=== PATIENT | female | born 1985 | race American Indian/Alaskan Native ===

== ENCOUNTER 2018-07-19 13:07 | Emergency (ER) | payer MEDICAID ==
[2018-07-19] MEDS ORDERED: CATAPRES PO ONE (13:22)
--- NOTE | 2018-07-19 13:22 | Emergency Department Report ---
Blank Doc - Documentation Documentation: This is a 33-year-old female that presents with intermittent acute on chronic headache. Denies any blurry vision or visual changes. Denies any head trauma. This initial assessment/diagnostic orders/clinical plan/treatment(s) is/are subject to change based on patient's health status, clinical progression and re- assessment by fellow clinical providers in the ED. Further treatment and workup at subsequent clinical providers discretion. Patient/guardians urged not to elope from the ED as their condition may be serious if not clinically assessed and managed. Initial orders include: 1- Patient sent to [facility] for further evaluation and treatment 2- Ct head 3- catapress 0.2 mg for high blood pressure in triage 4- RN to repeat vitals
[2018-07-19] MEDS ORDERED: CATAPRES ONE (13:23)
--- NOTE | 2018-07-19 14:27 | Cat Scan Report ---
CT HEAD WITHOUT CONTRAST: HISTORY: Headache. TECHNIQUE: Sequential 2.5mm CT images. COMPARISON: none. FINDINGS: Cerebral Parenchyma: Within normal limits. Cerebellum: Within normal limits. Brainstem: Within normal limits. Ventricles: Normal. Sella: Normal. Extra-axial spaces: Normal. Basal Cisterns: Normal. Intracranial Hemorrhage: None. Midline Shift: None. Calvarium: Normal. Sinuses: Moderate mucosal thickening is noted in both maxillary sinuses. Endoscopic sinus surgery changes are suspected. The remaining sinuses are clear. Mastoid Air Cells: Normal. Visualized Orbits: Normal. IMPRESSION: Cranial CT scan within normal limits. Bilateral maxillary sinus disease which is likely chronic.
[2018-07-19] MEDS ORDERED: TORADOL IV ONE (17:07)
--- NOTE | 2018-07-19 17:12 | Emergency Department Report ---
ED General Adult HPI - General Chief complaint: Headache Stated complaint: ABD PAIN/HEADACHE Time Seen by Provider: 07/19/18 13:19 Source: patient, RN notes reviewed Mode of arrival: Ambulatory Limitations: No Limitations - History of Present Illness Initial comments: Primary care DrRuss: [facility] [employer] Lube Technician: cannot remember This is a 33-year-old female, not known to this provider previously. The patient reports that she is not . The patient reports that she has not delivered a given within the past 6-8 weeks. Patient reports that she is only sexually active with female partners. The patient presents to the emergency room today with complaint of nontraumatic left-sided occipital and parietal headache. The headache started 3 days ago. It is throbbing and intermittent. It is not sudden or thunderclap in nature. It did not reach maximal intensity within an hour. It is not the most intense headache of her life. There is no loss of vision, no sore throat, no nausea, no vomiting, no diarrhea, no urinary symptoms, and no current abdominal pain at this time. On review of systems, the patient reports that she is on her cell phone and a tablet for many hours a day. She gets 6-7 hours of sleep each night, sometimes interrupted. She has not had her vision checked in quite some time. She is not sure if she needs glasses or contact lenses. Patient secondarily endorses that she has not had a menstruation in 5 months. She endorses a history of irregular menstruation. She does not have any abdominal pain at this time. She has no urinary symptoms at this time. -: Gradual, days(s) Location: head Radiation: non-radiation Severity scale (0 -10): 7 Quality: aching Consistency: intermittent Improves with: none Worsens with: none Associated Symptoms: denies other symptoms - Related Data Previous Rx's Medication Instructions Recorded Last Taken Type Acetaminophen [Non-Aspirin Extra 500 mg PO Q6HR PRN #30 tablet 07/19/18 Unknown Rx Strength] Ibuprofen [Motrin] 600 mg PO Q8H PRN #30 tablet 07/19/18 Unknown Rx Allergies Allergy/AdvReac Type Severity Reaction Status Date / Time No Known Allergies Allergy Unverified 07/19/18 13:09 ED Review of Systems ROS: Stated complaint: ABD PAIN/HEADACHE Other details as noted in HPI Constitutional: denies: fever, malaise Eyes: denies: eye discharge, vision change ENT: denies: epistaxis Respiratory: denies: cough, orthopnea, shortness of breath, SOB with exertion Cardiovascular: denies: chest pain Gastrointestinal: denies: abdominal pain Genitourinary: abnormal menses. denies: urgency, dysuria Musculoskeletal: denies: back pain Skin: denies: lesions Neurological: headache. denies: weakness Psychiatric: denies: anxiety ED Past Medical Hx - Past Medical History Previous Medical History?: Yes Hx Hypertension: Yes - Surgical History Past Surgical History?: Yes Additional Surgical History: sinus surgery - Social History Smoking Status: Never Smoker Substance Use Type: None - Medications Home Medications: Home Medications Medication Instructions Recorded Confirmed Last Taken Type Acetaminophen [Non-Aspirin Extra 500 mg PO Q6HR PRN #30 tablet 07/19/18 Unknown Rx Strength] Ibuprofen [Motrin] 600 mg PO Q8H PRN #30 tablet 07/19/18 Unknown Rx ED Physical Exam - General Limitations: No Limitations General appearance: alert, in no apparent distress - Head Head exam: Present: atraumatic, normocephalic - Eye Eye exam: Present: normal appearance, PERRL, EOMI, other (visual acuity intact to finger counting, color perception, reading at a close distance). Absent: nystagmus - ENT ENT exam: Present: normal exam, normal orophraynx, mucous membranes moist, TM's normal bilaterally, normal external ear exam, other (there is no mastoid tenderness. There is no sinus tenderness.) - Neck Neck exam: Present: normal inspection, full ROM. Absent: tenderness, meningismus - Respiratory Respiratory exam: Present: normal lung sounds bilaterally. Absent: respiratory distress, wheezes, rales, rhonchi, stridor, chest wall tenderness, accessory muscle use, decreased breath sounds, prolonged expiratory - Cardiovascular Cardiovascular Exam: Present: regular rate, normal rhythm, normal heart sounds. Absent: bradycardia, tachycardia, irregular rhythm, systolic murmur, diastolic murmur, rubs, gallop - GI/Abdominal GI/Abdominal exam: Present: soft. Absent: distended, tenderness, guarding, rebound, rigid, pulsatile mass - Extremities Exam Extremities exam: Present: normal inspection, full ROM, other (2+ pulses noted in the bilateral upper, lower extremities. Compartments soft. No long bony tenderness. The pelvis is stable.). Absent: pedal edema, joint swelling, calf tenderness - Back Exam Back exam: Present: normal inspection, full ROM. Absent: tenderness, CVA tenderness (R), CVA tenderness (L), paraspinal tenderness, vertebral tenderness - Neurological Exam Neurological exam: Present: alert, oriented X3, normal gait, other (Extraocular movements intact. Tongue midline. No facial droop. Facial sensation intact to light touch in the V1, V2, V3 distribution bilaterally. 5 and 5 strength in 4 extremities.. Sensation is intact to light touch in 4 extremities.) - Psychiatric Psychiatric exam: Present: normal affect, normal mood - Skin Skin exam: Present: warm, dry, intact, normal color. Absent: rash ED Course Vital Signs 07/19/18 07/19/18 07/19/18 13:19 15:51 16:48 Temperature 98.1 F Pulse Rate 107 H 95 H 85 Respiratory 16 18 17 Rate Blood Pressure 183/131 Blood Pressure 154/97 143/83 [Left] O2 Sat by Pulse 98 99 100 Oximetry ED Medical Decision Making - Lab Data Vital Signs 07/19/18 07/19/18 07/19/18 13:19 15:51 16:48 Temperature 98.1 F Pulse Rate 107 H 95 H 85 Respiratory 16 18 17 Rate Blood Pressure 183/131 Blood Pressure 154/97 143/83 [Left] O2 Sat by Pulse 98 99 100 Oximetry - Radiology Data Radiology results: report reviewed, image reviewed CT scan of the brain is negative for acute disease - Medical Decision Making Differential diagnosis, including not limited to: Migraine headache, tension headache, cluster headache, headache secondary to excessive cell phone use, headache secondary to inadequate lens correction, headache secondary to hair extensions, irregular menstruation, polycystic ovarian syndrome, thyroid disorder Assessment and plan: 33-year-old female with 2 complaints. Complaint #1, left-sided headache. The patient is afebrile with reassuring vital signs, with resolved hypertension. She was given clonidine prior to my evaluation. Patient is noted to be speaking and playing on her cellular phone, and in no acute distress. She also has hair extensions in place. She is getting them replaced next week. She appears to be quite comfortable. A noncontrast CT scan of the brain is negative for acute disease. The headache will be treated symptomatically. I have counseled the patient to limit cell phone and tablet utilization, and to have her vision checked as an outpatient, to assess need for corrective lenses. Complaint #2, no menstruation 5 months. Patient is not having any abdominal pain or tenderness. The patient indicates she is not sexually active with male partners. She has no abdominal tenderness at this time. I did offer the patient an initial workup, including laboratory studies, including thyroid panel. However, I did pre parole counseling aide the patient that she would need to follow-up with an outpatient acquisition analyst to further evaluate her irregular menstruation. Patient indicates she prefers to follow up as an outpatient. Through shared decision making, patient and I agreed to treat her headache pain, and she can follow up with an outpatient acquisition analyst for her complaint of irregular menstruation. Critical care attestation.: If time is entered above; I have spent that time in minutes in the direct care of this critically ill patient, excluding procedure time. ED Disposition Clinical Impression: Elevated blood pressure reading, Headache, Irregular menstruation Disposition: TO HOME OR SELFCARE Is pt being admited?: No Does the pt Need Aspirin: No Condition: Stable Additional Instructions: Continue outpatient medications. Please note that blood pressure was elevated. Long-term complications of hypertension and elevated blood pressure includes stroke, heart attack, disability, paralysis, loss of quality of life. Follow-up with your primary care doctor within the next 3-4 weeks for repeat evaluation of elevated blood pressure. Follow-up with a acquisition analyst within the next 4 weeks for complaint of irregular menstruation. Please make certain to follow-up with an outpatient communications tower climber, or county or city auditor to have visual acuity checked, and assess need for corrective lenses. Please make certain to limit cell phone utilization. Excessive use of saline phone, computers and tablets may contribute to headache. Technique a headache, pain medication as needed/directed, return to the emergency room right away with new, worsening or different symptoms, or symptoms not present on the initial ER evaluation. Referrals: KRISTEN CRUZ MD [Primary Care Provider] - 3-5 Days [facility] [Provider Group] - 3-5 Days [facility] [Provider Group] - 3-5 Days [facility] [Provider Group] - 3-5 Days
[2018-07-19 17:49] VITALS: BP 151/106
== END 2018-07-19 17:49 | disposition home or self-care (01) ==
LOC: ED 13:07
DX: R51 Headache (principal); N92.6 Irregular menstruation, unspecified; I10 Essential (primary) hypertension
CPT/HCPCS: 70450; 96374; 99284; J1885

== ENCOUNTER 2019-05-04 08:46 | Emergency (ER) | payer MEDICAID ==
[2019-05-04 08:54] VITALS: BP 193/128
--- NOTE | 2019-05-04 10:05 | Emergency Department Report ---
Chief Complaint: Upper Respiratory Infection Stated Complaint: COUGH/CHEST PAIN Time Seen by Provider: 05/04/19 09:10 - HPI History of Present Illness: 34-year-old -[place] female presents to the emergency room for claims a cough for 3 weeks. Patient admits to sneezing denies any fever chills no recent travels no chest pain no shortness of breath. Patient is taken nothing for her cough. It was noted the patient's blood pressure was elevated in triage. Pat vera reports that she has been off her her blood pressure medicine for 1 month. Patient reports that she has a appointment with her primary care provider on Tuesday for refills of her blood pressure medications. She denies any night sweats coughing up blood or unintentional weight loss. - Exam Vital Signs: Vital Signs 05/04/19 08:50 Temperature 97.8 F Pulse Rate 84 Respiratory 16 Rate Blood Pressure 193/128 [Left] O2 Sat by Pulse 94 Oximetry Physical Exam: Gen: alert oriented NAD Cardic: regular rate and rhythm no murmurs appreciated Resp: Clear to auscultation bilateral no wheezing no rales or rhonchi. Abdomen: Soft nontender nondistended normal bowel sounds. MSE screening note: Focused history and physical exam performed. Due to findings the following was ordered: 34-year-old -[place] female presents to the emergency room for claims a cough for 3 weeks. Patient admits to sneezing denies any fever chills no recent travels no chest pain no shortness of breath. Patient is taken nothing for her cough. It was noted the patient's blood pressure was elevated in triage. Patient reports that she has been off her her blood pressure medicine for 1 month. Patient reports that she has a appointment with her primary care provider on Tuesday for refills of her blood pressure medications. She denies any night sweats coughing up blood or unintentional weight loss. Recommend taking [id number] Claritin or Robitussin or Mucinex for cough. Follow-up with your primary care provider on Tuesday. ED Disposition for MSE Clinical Impression: Hypertension, Non-compliant patient, Cough Disposition: MED SCREENING EXAM-LEFT Is pt being admited?: No Does the pt Need Aspirin: No Condition: Stable Instructions: Hypertension (ED) Additional Instructions: Recommend taking [id number] Claritin or Robitussin or Mucinex for cough. Follow-up with your primary care provider on Tuesday.
== END 2019-05-04 10:17 | disposition left against medical advice (07) ==
LOC: ED 08:46
DX: I10 Essential (primary) hypertension (principal); R05 Cough
CPT/HCPCS: 99282

== ENCOUNTER 2019-06-10 06:49 | Emergency (ER) | payer MEDICAID ==
[2019-06-10] MEDS ORDERED: ACETAMINOPHEN 325 MG TAB ONE (07:12)
[2019-06-10] MEDS ORDERED: ONDANSETRON 4 MG ODT TAB PO ONE (07:13)
[2019-06-10] MEDS ORDERED: SODIUM CHLORIDE 0.9% 1000 ML 1,000 ML IV ONE ×2 (07:37→08:28)
--- NOTE | 2019-06-10 07:37 | Emergency Department Report ---
ED Fever HPI - General Chief Complaint: Upper Respiratory Infection Stated Complaint: VOMITING/FEVER/COUGH/BODYACHE/CP Time Seen by Provider: 06/10/19 07:31 Source: patient Exam Limitations: no limitations - History of Present Illness Initial Comments: Mrs. Henson is a 34-year-old female with history of hypertension who presents with 2 days of fever cough vomiting blood left earache. She also has body aches. No sick contacts. She does not work. She lives with her mother and 3 children. She has been in public spaces. Cough is productive. She has chest discomfort with cough. Nurse witnessed bloody emesis in triage. She also explains that her stomach feels "upset". Timing/Duration: other (2 days) Fever Severity/Quality: greater than 102 F Associated Symptoms: cough, muscle aches, other (Hematemesis left earache) ED Review of Systems ROS: Stated complaint: VOMITING/FEVER/COUGH/BODYACHE/CP Other details as noted in HPI Comment: All other systems reviewed and negative Constitutional: fever, malaise ENT: ear pain Respiratory: cough. denies: shortness of breath Cardiovascular: chest pain Gastrointestinal: abdominal pain ("Stomach upset"), nausea, hematemesis ED Past Medical Hx - Past Medical History Previous Medical History?: Yes Hx Hypertension: Yes - Surgical History Additional Surgical History: sinus surgery - Social History Smoking Status: Never Smoker Substance Use Type: None - Medications Home Medications: Home Medications Medication Instructions Recorded Confirmed Last Taken Type Acetaminophen [Non-Aspirin Extra 500 mg PO Q6HR PRN #30 tablet 07/19/18 Unknown Rx Strength] Doxycycline Hyclate [Doxycycline 100 mg PO Q12HR 7 Days #14 tab 06/10/19 Unknown Rx Hyclate TAB] ED Physical Exam - General Limitations: No Limitations General appearance: alert, in no apparent distress - Head Head exam: Present: atraumatic, normocephalic - Eye Eye exam: Present: normal appearance - ENT ENT exam: Present: mucous membranes moist, other (Left tympanic membrane: There is opaque effusion purulent posterior to a bulging erythematous TM) - Neck Neck exam: Present: normal inspection, full ROM - Respiratory Respiratory exam: Present: normal lung sounds bilaterally. Absent: respiratory distress, wheezes, rales, rhonchi - Cardiovascular Cardiovascular Exam: Present: normal rhythm, tachycardia, normal heart sounds. Absent: systolic murmur, diastolic murmur, rubs, gallop - GI/Abdominal GI/Abdominal exam: Present: soft, normal bowel sounds. Absent: distended, t enderness, guarding, rebound - Extremities Exam Extremities exam: Present: normal inspection - Neurological Exam Neurological exam: Present: alert, oriented X3 - Psychiatric Psychiatric exam: Present: normal affect, normal mood - Skin Skin exam: Present: warm, dry, intact, normal color. Absent: rash ED Course Vital Signs 06/10/19 06/10/19 06/10/19 06:54 07:02 07:52 Temperature 102.8 F H Pulse Rate 128 H 127 H Respiratory 20 20 24 Rate Blood Pressure 143/106 130/93 [Left] O2 Sat by Pulse 98 99 Oximetry 06/10/19 08:05 Temperature Pulse Rate Respiratory 18 Rate Blood Pressure [Left] O2 Sat by Pulse Oximetry ED Medical Decision Making - Lab Data Result diagrams: 06/10/19 07:31 06/10/19 07:31 - EKG Data EKG shows normal: sinus rhythm, intervals, QRS complexes, ST-T waves Rate: normal, tachycardia - EKG Data Interpretation: normal EKG (With exception of sinus tachycardia rate 130 bpm) - Radiology Data Radiology results: report reviewed Bibasilar airspace opacities concerning for pneumonia chest radiograph 2 view according to radiology impression - Medical Decision Making bibasilar pneumonia with otitis media prescribed doxycycline consider alcohol or pandemic I strongly suspect COVID 19 infection. Patient provided education. She is advised to self quarantine and self isolate for the next 14 days. Critical care attestation.: If time is entered above; I have spent that time in minutes in the direct care of this critically ill patient, excluding procedure time. ED Disposition Clinical Impression: Coronavirus infection, Otitis media, left Disposition: DC-01 TO HOME OR SELFCARE Is pt being admited?: No Does the pt Need Aspirin: No Condition: Stable Instructions: COVID-19 Prescriptions: Doxycycline Hyclate [Doxycycline Hyclate TAB] 100 mg PO Q12HR 7 Days #14 tab Referrals: JELLY BARFIELD MD [Primary Care Provider] - 3-5 Days
[2019-06-10] MEDS ORDERED: ONDANSETRON 4 MG/2 ML INJ IV ONE (07:58)
[2019-06-10 08:10] LABS: Basophils # (Auto) 0.2 K/mm3 (0.0-0.1); Basophils % (Auto) 2.6 % (0.0-1.8); Hematocrit 47.6 % (30.3-42.9); Hemoglobin 16.5 gm/dl (10.1-14.3); Lymphocytes # (Auto) 2.2 K/mm3 (1.2-5.4); Lymphocytes % (Auto) 25.3 % (13.4-35.0); Mean Corpuscular HGB Conc 35 % (30-34); Mean Corpuscular Volume 81 fl (79-97); Monocytes # (Auto) 0.8 K/mm3 (0.0-0.8); Monocytes % (Auto) 8.8 % (0.0-7.3); Platelet Count 198 K/mm3 (140-440); Red Blood Count 5.89 M/mm3 (3.65-5.03)
[2019-06-10 08:23] LABS: Alanine Aminotransferase 19 units/L (7-56); Albumin 3.8 g/dL (3.9-5); BUN/Creatinine Ratio 12; Blood Urea Nitrogen 12 mg/dL (7-17); Calcium 8.8 mg/dL (8.4-10.2); Hemolysis Index 21
[2019-06-10] MEDS ORDERED: IBUPROFEN 800 MG TAB PO ONE (08:28)
[2019-06-10] MEDS: ACETAMINOPHEN 325 MG TAB PO ONE ×3 (08:34→09:20)
--- NOTE | 2019-06-10 08:59 | XRay Report ---
CHEST 2 VIEWS INDICATION / CLINICAL INFORMATION: Fever, cough. COMPARISON: None available. FINDINGS: SUPPORT DEVICES: None. HEART / MEDIASTINUM: No significant abnormality. LUNGS / PLEURA: Bibasilar airspace opacities are noted. The upper lungs are clear. No significant ple ural effusion. No pneumothorax. ADDITIONAL FINDINGS: No significant additional findings. IMPRESSION: Bibasilar airspace opacities are concerning for pneumonia given the provided history. Follow-up PA an d lateral chest radiograph in 2-3 weeks are recommended to document clearing. Signer Name: Gaudencio Soto MD Signed: 06/10/2019 8:55 AM Workstation Name: [id number]
[2019-06-10 11:32] VITALS: BP 141/90
== END 2019-06-10 11:41 | disposition home or self-care (01) ==
LOC: ED 06:49
DX: H66.92 Otitis media, unspecified, left ear (principal); U07.1 COVID-19; I10 Essential (primary) hypertension; Z98.890 Other specified postprocedural states
CPT/HCPCS: 36415; 71046; 80053; 84703; 85025; 87040; 93005; 93010; 96361; 96374; 99284; J2405; J7030; Q0162

== ENCOUNTER 2019-06-12 19:34 | Emergency (ER) | payer MEDICAID ==
[2019-06-12] MEDS ORDERED: SODIUM CHLORIDE 0.9% 1000 ML IV SOLN IV ONE (20:09)
[2019-06-12 20:11] LABS: Basophils % (Auto) 0.3 % (0.0-1.8); Hematocrit 45.7 % (30.3-42.9); Hemoglobin 15.3 gm/dl (10.1-14.3); Lymphocytes # (Auto) 1.2 K/mm3 (1.2-5.4); Lymphocytes % (Auto) 15.7 % (13.4-35.0); Mean Corpuscular HGB Conc 34 % (30-34); Mean Corpuscular Volume 81 fl (79-97); Monocytes # (Auto) 0.6 K/mm3 (0.0-0.8); Monocytes % (Auto) 7.8 % (0.0-7.3); Platelet Count 165 K/mm3 (140-440); Red Blood Count 5.63 M/mm3 (3.65-5.03); Red Cell Distribution Width 14.4 % (13.2-15.2)
[2019-06-12] MEDS ORDERED: BENZONATATE 100 MG CAP PO ONE (20:11)
[2019-06-12] MEDS ORDERED: HYDROcodone/APAP 7.5-325MG-15ML ORAL LIQD PO ONE (20:11)
[2019-06-12] MEDS ORDERED: cefTRIAXone/NS 2 GM/100 ML 2 GM/100 ML BAG IV SCH (20:30)
[2019-06-12 20:35] LABS: C-Reactive Protein 5.3 mg/dL (0.00-1.30)
--- NOTE | 2019-06-12 20:53 | XRay Report ---
CHEST 1 VIEW INDICATION / CLINICAL INFORMATION: cough sob. COMPARISON: None available. FINDINGS: SUPPORT DEVICES: None. HEART / MEDIASTINUM: No significant abnormality. LUNGS / PLEURA: No significant pulmonary or pleural abnormality. No pneumothorax. ADDITIONAL FINDINGS: No significant additional findings. IMPRESSION: 1. No acute findings. Signer Name: Live Salazar MD Signed: 06/12/2019 8:49 PM Workstation Name: [id number]
[2019-06-12] MEDS ORDERED: KETOROLAC 30 MG/1 ML INJ IV ONE (20:56)
[2019-06-12] MEDS ORDERED: ONDANSETRON 4 MG/2 ML INJ IV ONE (20:56)
[2019-06-12] MEDS ORDERED: AZITHROMYCIN 500 MG in SODIUM CHLORIDE 0.9% 250ML 250 ML IV SCH (21:30)
[2019-06-12 21:40] LABS: Albumin 3.8 g/dL (3.9-5); Calcium 9.1 mg/dL (8.4-10.2)
[2019-06-12 22:14] LABS: Bacteria,Urine 1+ /HPF (Negative); Bilirubin,Urine NEG (Negative); Blood,Urine MOD (Negative); Color,Urine Yellow (Yellow); Mucus,Urine 2+ /HPF; Urobilinogen,Urine < 2.0 mg/dL (<2.0)
[2019-06-12] MEDS ORDERED: FAMOTIDINE 20 MG/2 ML INJ IV ONE ×2 (22:42→22:44)
[2019-06-12] MEDS ORDERED: DICYCLOMINE 20 MG/2 ML INJ IM ONE ×2 (22:42→22:44)
--- NOTE | 2019-06-12 23:45 | Emergency Department Report ---
ED General Adult HPI - General Chief complaint: Abdominal Pain Stated complaint: COUGH/ABD PAIN/EMESIS Time Seen by Provider: 06/12/19 19:59 Source: patient Mode of arrival: Wheelchair Limitations: No Limitations - History of Present Illness Initial comments: Patient is a 34-year-old F [place] female who is had cough shortness of breath for approximately a week. Patient was here 2 days ago and diagnosed with bilateral pneumonia and possible coronavirus. Patient states she is now vomiting having some upper abdominal discomfort. Patient states cough is nonproductive. Patient states she has not eaten in approximately 3 days secondary to the cough and decreased appetite. She denies lightheadedness diarrhea sore throat or neck stiffness. Patient has had fevers and chills. Severity scale (0 -10): 10 - Related Data Previous Rx's Medication Instructions Recorded Last Taken Type Acetaminophen [Non-Aspirin Extra 500 mg PO Q6HR PRN #30 tablet 07/19/18 Unknown Rx Strength] Doxycycline Hyclate [Doxycycline 100 mg PO Q12HR 7 Days #14 tab 06/10/19 Unknown Rx Hyclate TAB] Albuterol INH(or & Nicu Only) 2 puff IH QID PRN #1 inhalation 06/12/19 Unknown Rx [ProAir HFA Inhaler] Benzonatate [Tessalon Perles] 100 mg PO Q8HR #10 capsule 06/12/19 Unknown Rx Dicyclomine [Bentyl] 20 mg PO QID #10 tablet 06/12/19 Unknown Rx HYDROcodone/ACETAMINOPHEN 15 ml PO Q6H PRN #150 solution 06/12/19 Unknown Rx [Hydrocodon-Acetamin 7.5-325/15] Ondansetron [Zofran Odt] 4 mg PO Q8HR #10 tab.rapdis 06/12/19 Unknown Rx Allergies Allergy/AdvReac Type Severity Reaction Status Date / Time No Known Allergies Allergy Unverified 07/19/18 13:09 ED Review of Systems ROS: Stated complaint: COUGH/ABD PAIN/EMESIS Other details as noted in HPI Comment: All other systems reviewed and negative ED Past Medical Hx - Past Medical History Previous Medical History?: Yes Hx Hypertension: Yes - Surgical History Past Surgical History?: Yes Additional Surgical History: sinus surgery - Social History Smoking Status: Never Smoker Substance Use Type: None - Medications Home Medications: Home Medications Medication Instructions Recorded Confirmed Last Taken Type Acetaminophen [Non-Aspirin Extra 500 mg PO Q6HR PRN #30 tablet 07/19/18 Unknown Rx Strength] Doxycycline Hyclate [Doxycycline 100 mg PO Q12HR 7 Days #14 tab 06/10/19 Unknown Rx Hyclate TAB] Albuterol INH(or & Nicu Only) 2 puff IH QID PRN #1 inhalation 06/12/19 Unknown Rx [ProAir HFA Inhaler] Benzonatate [Tessalon Perles] 100 mg PO Q8HR #10 capsule 06/12/19 Unknown Rx Dicyclomine [Bentyl] 20 mg PO QID #10 tablet 06/12/19 Unknown Rx HYDROcodone/ACETAMINOPHEN 15 ml PO Q6H PRN #150 solution 06/12/19 Unknown Rx [Hydrocodon-Acetamin 7.5-325/15] Ondansetron [Zofran Odt] 4 mg PO Q8HR #10 tab.rapdis 06/12/19 Unknown Rx ED Physical Exam - General Limitations: No Limitations General appearance: alert, in no apparent distress - Head Head exam: Present: atraumatic, normocephalic - Eye Eye exam: Present: normal appearance, PERRL, EOMI - ENT ENT exam: Present: mucous membranes moist - Neck Neck exam: Present: normal inspection - Respiratory Respiratory exam: Present: normal lung sounds bilaterally. Absent: respiratory distress, wheezes, rales, rhonchi - Cardiovascular Cardiovascular Exam: Present: normal rhythm, tachycardia, normal heart sounds. Absent: systolic murmur, diastolic murmur, rubs, gallop - GI/Abdominal GI/Abdominal exam: Present: soft, normal bowel sounds. Absent: distended, tenderness, guarding, rebound - Extremities Exam Extremities exam: Present: normal inspection - Back Exam Back exam: Present: normal inspection - Neurological Exam Neurological exam: Present: alert, oriented X3 - Psychiatric Psychiatric exam: Present: normal affect, normal mood - Skin Skin exam: Present: warm, dry, intact, normal color. Absent: rash ED Course Vital Signs 06/12/19 06/12/19 06/12/19 19:52 20:40 20:45 Temperature 103.1 F H Pulse Rate 134 H 132 H Respiratory 22 18 21 Rate Blood Pressure 150/103 Blood Pressure 123/87 [Left] O2 Sat by Pulse 95 99 Oximetry 06/12/19 06/12/1906/11/20 21:00 22:00 22:30 Temperature Pulse Rate 123 H 120 H 119 H Respiratory 26 H 23 24 Rate Blood Pressure 134/92 135/84 122/75 Blood Pressure [Left] O2 Sat by Pulse 97 95 96 Oximetry ED Medical Decision Making - Lab Data Result diagrams: 06/12/19 19:56 06/12/19 19:56 Lab Results 06/12/19 06/12/19 06/12/19 Range/Units 19:56 19:56 19:56 WBC 7.9 (4.5-11.0) K/mm3 RBC 5.63 H (3.65-5.03) M/mm3 Hgb 15.3 H (10.1-14.3) gm/dl Hct 45.7 H (30.3-42.9) % MCV 81 (79-97) fl MCH 27 L (28-32) pg MCHC 34 (30-34) % RDW 14.4 (13.2-15.2) % Plt Count 165 (140-440) K/mm3 Lymph % (Auto) 15.7 (13.4-35.0) % [place] % (Auto) 7.8 H (0.0-7.3) % Eos % (Auto) 0.0 (0.0-4.3) % Baso % (Auto) 0.3 (0.0-1.8) % Lymph # 1.2 (1.2-5.4) K/mm3 [place] # 0.6 (0.0-0.8) K/mm3 Eos # 0.0 (0.0-0.4) K/mm3 Baso # 0.0 (0.0-0.1) K/mm3 Seg Neutrophils % 76.2 H (40.0-70.0) % Seg Neutrophils # 6.0 (1.8-7.7) K/mm3 D-Dimer 551.55 H (0-234) ng/mlDDU Sodium 135 L (137-145) mmol/L Potassium 3.8 (3.6-5.0) mmol/L Chloride 96.2 L (98-107) mmol/L Carbon Dioxide 20 L (22-30) mmol/L Anion Gap 23 mmol/L BUN 15 (7-17) mg/dL Creatinine 1.3 H (0.7-1.2) mg/dL Estimated GFR 57 ml/min BUN/Creatinine Ratio 12 % Glucose 129 H (65-100) mg/dL Lactic Acid (0.7-2.0) mmol/L Calcium 9.1 (8.4-10.2) mg/dL Ferritin (13.0-400.0) ng/mL Total Bilirubin 0.50 (0.1-1.2) mg/dL AST 52 H (5-40) units/L ALT 31 (7-56) units/L Alkaline Phosphatase 58 (35-129) units/L Lactate Dehydrogenase (91-180) units/L C-Reactive Protein (0.00-1.30) mg/dL Total Protein 8.4 H (6.3-8.2) g/dL Albumin 3.8 L (3.9-5) g/dL Albumin/Globulin Ratio 0.8 % Urine Color (Yellow) Urine Turbidity (Clear) Urine pH (5.0-7.0) Ur Specific [place] (1.003-1.030) Urine Protein (Negative) mg/dL Urine Glucose (UA) (Negative) mg/dL Urine Ketones (Negative) mg/dL Urine Blood (Negative) Urine Nitrite (Negative) Urine Bilirubin (Negative) Urine Urobilinogen (<2.0) mg/dL Ur Leukocyte Esterase (Negative) Urine WBC (Auto) (0.0-6.0) /HPF Urine RBC (Auto) (0.0-6.0) /HPF U Epithel Cells (Auto) (0-13.0) /HPF Urine Bacteria (Auto) (Negative) /HPF Urine Mucus /HPF 06/12/19 06/12/19 06/12/19 Range/Units 19:56 19:56 20:16 WBC (4.5-11.0) K/mm3 RBC (3.65-5.03) M/mm3 Hgb (10.1-14.3) gm/dl Hct (30.3-42.9) % MCV (79-97) fl MCH (28-32) pg MCHC (30-34) % RDW (13.2-15.2) % Plt Count (140-440) K/mm3 Lymph % (Auto) (13.4-35.0) % [place] % (Auto) (0.0-7.3) % Eos % (Auto) (0.0-4.3) % Baso % (Auto) (0.0-1.8) % Lymph # (1.2-5.4) K/mm3 [place] # (0.0-0.8) K/mm3 Eos # (0.0-0.4) K/mm3 Baso # (0.0-0.1) K/mm3 Seg Neutrophils % (40.0-70.0) % Seg Neutrophils # (1.8-7.7) K/mm3 D-Dimer (0-234) ng/mlDDU Sodium (137-145) mmol/L Potassium (3.6-5.0) mmol/L Chloride (98-107) mmol/L Carbon Dioxide (22-30) mmol/L Anion Gap mmol/L BUN (7-17) mg/dL Creatinine (0.7-1.2) mg/dL Estimated GFR ml/min BUN/Creatinine Ratio % Glucose 131 H (65-100) mg/dL Lactic Acid 1.20 (0.7-2.0) mmol/L Calcium (8.4-10.2) mg/dL Ferritin 355.8 (13.0-400.0) ng/mL Total Bilirubin (0.1-1.2) mg/dL AST (5-40) units/L ALT (7-56) units/L Alkaline Phosphatase (35-129) units/L Lactate Dehydrogenase 313 H (91-180) units/L C-Reactive Protein 5.30 H (0.00-1.30) mg/dL Total Protein (6.3-8.2) g/dL Albumin (3.9-5) g/dL Albumin/Globulin Ratio % Urine Color (Yellow) Urine Turbidity (Clear) Urine pH (5.0-7.0) Ur Specific [place] (1.003-1.030) Urine Protein (Negative) mg/dL Urine Glucose (UA) (Negative) mg/dL Urine Ketones (Negative) mg/dL Urine Blood (Negative) Urine Nitrite (Negative) Urine Bilirubin (Negative) Urine Urobilinogen (<2.0) mg/dL Ur Leukocyte Esterase (Negative) Urine WBC (Auto) (0.0-6.0) /HPF Urine RBC (Auto) (0.0-6.0) /HPF U Epithel Cells (Auto) (0-13.0) /HPF Urine Bacteria (Auto) (Negative) /HPF Urine Mucus /HPF 06/12/19 Range/Units 22:07 WBC (4.5-11.0) K/mm3 RBC (3.65-5.03) M/mm3 Hgb (10.1-14.3) gm/dl Hct (30.3-42.9) % MCV (79-97) fl MCH (28-32) pg MCHC (30-34) % RDW (13.2-15.2) % Plt Count (140-440) K/mm3 Lymph % (Auto) (13.4-35.0) % [place] % (Auto) (0.0-7.3) % Eos % (Auto) (0.0-4.3) % Baso % (Auto) (0.0-1.8) % Lymph # (1.2-5.4) K/mm3 [place] # (0.0-0.8) K/mm3 Eos # (0.0-0.4) K/mm3 Baso # (0.0-0.1) K/mm3 Seg Neutrophils % (40.0-70.0) % Seg Neutrophils # (1.8-7.7) K/mm3 D-Dimer (0-234) ng/mlDDU Sodium (137-145) mmol/L Potassium (3.6-5.0) mmol/L Chloride (98-107) mmol/L Carbon Dioxide (22-30) mmol/L Anion Gap mmol/L BUN (7-17) mg/dL Creatinine (0.7-1.2) mg/dL Estimated GFR ml/min BUN/Creatinine Ratio % Glucose (65-100) mg/dL Lactic Acid (0.7-2.0) mmol/L Calcium (8.4-10.2) mg/dL Ferritin (13.0-400.0) ng/mL Total Bilirubin (0.1-1.2) mg/dL AST (5-40) units/L ALT (7-56) units/L Alkaline Phosphatase (35-129) units/L Lactate Dehydrogenase (91-180) units/L C-Reactive Protein (0.00-1.30) mg/dL Total Protein (6.3-8.2) g/dL Albumin (3.9-5) g/dL Albumin/Globulin Ratio % Urine Color Yellow (Yellow) Urine Turbidity Clear (Clear) Urine pH 5.0 (5.0-7.0) Ur Specific [place] 1.026 (1.003-1.030) Urine Protein 100 mg/dl (Negative) mg/dL Urine Glucose (UA) Neg (Negative) mg/dL Urine Ketones Tr (Negative) mg/dL Urine Blood Mod (Negative) Urine Nitrite Neg (Negative) Urine Bilirubin Neg (Negative) Urine Urobilinogen < 2.0 (<2.0) mg/dL Ur Leukocyte Esterase Neg (Negative) Urine WBC (Auto) 6.0 (0.0-6.0) /HPF Urine RBC (Auto) 3.0 (0.0-6.0) /HPF U Epithel Cells (Auto) 2.0 (0-13.0) /HPF Urine Bacteria (Auto) 1+ (Negative) /HPF Urine Mucus 2+ /HPF - Radiology Data [facility] [address] [place] [address] XRay Report Signed Patient: OMER ESCALANTE MR#: [id number] : 1985 Acct:[id number] Age/Sex: 34 / F ADM Date: 06/12/19 Loc: ED Attending Dr: Ordering Physician: NAZIA SIMON MD Date of Service: 06/12/19 Procedure(s): XR chest 1V ap Accession Number(s): [id number] cc: NAZIA SIMON MD Fluoro Time In Minutes: CHEST 1 VIEW INDICATION / CLINICAL INFORMATION: cough sob. COMPARISON: None available. FINDINGS: SUPPORT DEVICES: None. HEART / MEDIASTINUM: No significant abnormality. LUNGS / PLEURA: No significant pulmonary or pleural abnormality. No p neumothorax. ADDITIONAL FINDINGS: No significant additional findings. IMPRESSION: 1. No acute findings. Signer Name: Live Salazar MD Signed: 06/12/2019 8:49 PM Workstation Name: [email or web address] - Medical Decision Making Patient was started on IV fluids when laboratory studies were drawn. Chest x- ray 2 days ago showed possible bilateral lower lobe infiltrates which were not seen at this time. Patient is white count is within normal limits. Even after ambulating greater than 2 minutes patient's O2 sat was within normal limits and patient was not hypoxic. After IV fluids patient's heart rate did improve. Patient's nausea is improved as well as she was able to tolerate juice and snack here in the emergency department and states her abdominal discomfort is better. Patient likely does have coronavirus infection and is been asked to return if her shortness of breath worsens at this time patient does not meet inpatient criteria will be discharged home. Critical care attestation.: If time is entered above; I have spent that time in minutes in the direct care of this critically ill patient, excluding procedure time. ED Disposition Clinical Impression: Upper respiratory infection, Gastritis, Suspected COVID-19 virus infection Disposition: DC-01 TO HOME OR SELFCARE Is pt being admited?: No Does the pt Need Aspirin: No Condition: Stable Instructions: COVID-19, Acute Nausea and Vomiting (ED) Referrals: PRIMARY CARE, [Primary Care Provider] - 7-10 days Time of Disposition: 23:47
[2019-06-13 00:30] VITALS: BP 117/79
== END 2019-06-13 00:15 | disposition home or self-care (01) ==
LOC: ED 19:34
DX: J06.9 Acute upper respiratory infection, unspecified (principal); K29.60 Other gastritis without bleeding; I10 Essential (primary) hypertension; Z79.899 Other long term (current) drug therapy; Z98.890 Other specified postprocedural states; Z20.828 Contact with and (suspected) exposure to other viral communicable diseases
CPT/HCPCS: 36415; 71045; 80053; 81001; 82140; 82728; 82947; 83615; 84145; 85025; 85379; 86140; 87040; 96365; 96367; 96372; 96375; 99284; J0456; J0500; J0696; J1885; J2405; J7030; J7050

== ENCOUNTER 2019-07-02 11:09 | Emergency (ER) | payer MEDICAID ==
[2019-07-02 11:42] LABS: Basophils # (Auto) 0.1 K/mm3 (0.0-0.1); Basophils % (Auto) 1.2 % (0.0-1.8); Eosinophils # (Auto) 0.1 K/mm3 (0.0-0.4); Eosinophils % (Auto) 0.9 % (0.0-4.3); Hematocrit 38.6 % (30.3-42.9); Hemoglobin 12.9 gm/dl (10.1-14.3); Lymphocytes # (Auto) 2.5 K/mm3 (1.2-5.4); Lymphocytes % (Auto) 28.7 % (13.4-35.0); Mean Corpuscular HGB Conc 33 % (30-34); Mean Corpuscular Volume 81 fl (79-97); Monocytes # (Auto) 0.5 K/mm3 (0.0-0.8); Monocytes % (Auto) 6.2 % (0.0-7.3); Platelet Count 301 K/mm3 (140-440); Red Blood Count 4.77 M/mm3 (3.65-5.03); Red Cell Distribution Width 13.9 % (13.2-15.2)
[2019-07-02] MEDS ORDERED: KETOROLAC 60 MG/2 ML INJ IM ONE (11:56)
[2019-07-02 12:07] LABS: Alanine Aminotransferase 36 units/L (7-56); Albumin 3.6 g/dL (3.9-5); BUN/Creatinine Ratio 12; Blood Urea Nitrogen 11 mg/dL (7-17); Calcium 9.2 mg/dL (8.4-10.2); Hemolysis Index 30
[2019-07-02 12:16] LABS: Bilirubin,Urine NEG (Negative); Blood,Urine MOD (Negative); Color,Urine Yellow (Yellow); Mucus,Urine FEW /HPF; Protein,Urine <15 mg/dL mg/dL (Negative); Urobilinogen,Urine < 2.0 mg/dL (<2.0)
--- NOTE | 2019-07-02 12:30 | Emergency Department Report ---
ED Abdominal Pain HPI - General Chief Complaint: Abdominal Pain Stated Complaint: BACK PAIN, CANT USE BATHROOM Time Seen by Provider: 07/02/19 11:40 Source: patient Mode of arrival: Wheelchair Limitations: No Limitations - History of Present Illness Initial Comments: 34-year-old female with of PUD presents to the ER today complaining of right upper quadrant/right flank pain. Patient states that her pain started last night while she was laying down. She states that it has been a constant pain and has gotten worse today. She states that is nonradiating. Patient states that she has been having a sensation that she has to have a bowel movement, ea rlier today when she went she only had small amount of stool, like a pebble and was hard but later on she had another bowel movement and it was "soupy" consistency. She states that she had not taken anything [id number] for the pain nor for constipation. Patient also reports a pressure sensation down her vaginal area as well as her rectum. She states that this pressure sensation is intermittent. She denies any bloody stools or mucus in her stools. She denies any UTI symptoms or vaginal symptoms. She states that she stopped depo last year and she has not had a menstrual cycle since. She states she is not concerned for as she is homosexual. She denies similar pain in past. She denies nausea, vomiting, fever. She denies history of abdominal surgeries. MD Complaint: abdominal pain, flank pain -: Sudden (last night) Severity scale (0 -10): 5 - Related Data Previous Rx's Medication Instructions Recorded Last Taken Type Azithromycin [Zithromax Z-KEN] 0 mg PO DAILY #1 pack 07/02/19 Unknown Rx Ketorolac [Toradol] 10 mg PO Q6H PRN #20 tablet 07/02/19 Unknown Rx Tamsulosin [Flomax] 0.4 mg PO QDAY #5 cap 07/02/19 Unknown Rx Allergies Allergy/AdvReac Type Severity Reaction Status Date / Time No Known Allergies Allergy Unverified 07/19/18 13:09 ED Review of Systems ROS: Stated complaint: BACK PAIN, CANT USE BATHROOM Other details as noted in HPI Constitutional: denies: chills, fever ENT: denies: ear pain, throat pain Respiratory: denies: cough, shortness of breath, wheezing Cardiovascular: denies: chest pain, palpitations Gastrointestinal: abdominal pain, constipation. denies: nausea, vomiting, diarrhea, hematemesis, melena, hematochezia Genitourinary: denies: urgency, dysuria, discharge Neurological: denies: headache, weakness, paresthesias Psychiatric: denies: anxiety, depression ED Past Medical Hx - Past Medical History Previous Medical History?: Yes Hx Hypertension: Yes Additional medical history: Dx with COVID 19 a couple weeks ago - Recovered - Surgical History Past Surgical History?: Yes Additional Surgical History: sinus surgery - Social History Smoking Status: Never Smoker Substance Use Type: None - Medications Home Medications: Home Medications Medication Instructions Recorded Confirmed Last Taken Type Azithromycin [Zithromax Z-KEN] 0 mg PO DAILY #1 pack 07/02/19 Unknown Rx Ketorolac [Toradol] 10 mg PO Q6H PRN #20 tablet 07/02/19 Unknown Rx Tamsulosin [Flomax] 0.4 mg PO QDAY #5 cap 07/02/19 Unknown Rx ED Physical Exam - General Limitations: No Limitations General appearance: alert, anxious (mild), in distress (Mild pain) - Head Head exam: Present: atraumatic, normocephalic - Eye Eye exam: Present: normal appearance - ENT ENT exam: Present: mucous membranes moist - Respiratory Respiratory exam: Present: normal lung sounds bilaterally. Absent: respiratory distress - Cardiovascular Cardiovascular Exam: Present: regular rate, normal rhythm. Absent: systolic murmur, diastolic murmur, rubs, gallop - GI/Abdominal GI/Abdominal exam: Present: soft, tenderness (Mild right upper quadrant and right lower quadrant abdominal tenderness without any guarding or rebound. Negative McBurney's point tenderness and negative Quintanilla sign), other (Mild right CVA tenderness) - Rectal Rectal exam: Present: normal inspection, normal rectal tone. Absent: fecal im paction, hemorrhoids - Neurological Exam Neurological exam: Present: alert, oriented X3, CN II-XII intact - Skin Skin exam: Present: intact ED Course Vital Signs 07/02/19 11:23 Temperature 98.1 F Pulse Rate 84 Respiratory 20 Rate Blood Pressure 180/120 [Right] O2 Sat by Pulse 98 Oximetry ED Medical Decision Making - Lab Data Result diagrams: 07/02/19 11:25 07/02/19 11:25 - Radiology Data Radiology results: report reviewed Findings [address] [address] Cat Scan Report Signed Patient: OMER ESCALANTE MR#: [id number] : 1985 Acct:[id number] Age/Sex: 34 / F ADM Date: 07/02/19 Loc: ED Attending Dr: Ordering Physician: PARAMJIT TEIXEIRA Date of Service: 07/02/19 Procedure(s): CT abdomen pelvis wo con Accession Number(s): [id number] cc: PARAMJIT TEIXEIRA CT ABDOMEN AND PELVIS WITHOUT CONTRAST HISTORY: Right flank pain. COMPARISON: None TECHNIQUE: Routine abdominal and pelvic CT exam performed without contrast. Lack of intravenous contrast limits evaluation of the vascular and solid organs.. All CT scans at this location are performed using CT dose reduction for ALARA by means of automated exposure control. FINDINGS: CT AB DOMEN: Lung Bases: There is airspace consolidation in the posterior basilar right lower lobe. Liver: Decreased attenuation consistent with hepatic steatosis. Biliary: No significant abnormality. Spleen: No significant abnormality. Unenlarged. Pancreas: No significant abnormality. Adrenals: No significant abnormality. Kidneys: There is mild right hydronephrosis due to a 1 mm stone in the right UVJ. There is also a 2 mm right intrarenal stone. There is a 1 mm left intrarenal stone. Lymphatics: No lymphadenopathy. Vasculature: No significant abnormality. Bowel/Peritoneum: No significant abnormality. No free air. No free fluid. CT PELVIC: : No significant abnormality. Lymphatics: No lymphadenopathy. Osseous Structures: No aggressive appearing osseous lesions. Additional Findings: None IMPRESSION: 1. Mild right hydronephrosis due to a 1 mm right UVJ stone. 2. Additional tiny nonobstructing bilateral intrarenal stones. 3. Right lower lobe airspace consolidation suggestive of pneumonia. 4. Hepatic steatosis. Signer Name: Chan Mustafa MD Signed: 07/02/2019 12:24 PM Workstation Name: [id number] Transcribed By: ABEBE Dictated By: Chan Mustafa MD Electronically Authenticated By: Chan Mustafa MD Signed Date/Time: 07/02/19 1224 DD/ 1221 TD/TT: Findings [address] [address] XRay Report Signed Patient: OMER ESCALANTE MR#: [id number] : 1985 Acct:[id number] Age/Sex: 34 / F ADM Date: 07/02/19 Loc: ED Attending Dr: Ordering Physician: PARAMJIT TEIXEIRA Date of Service: 07/02/19 Procedure(s): XR chest routine 2V Accession Number(s): [id number] cc: PARAMJIT TEIXEIRA Fluoro Time In Minutes: CHEST 2 VIEWS INDICATION: pneumonia on abdominal ct. COMPARISON: 06/12/2019 FINDINGS: Support devices: None. Heart: Within normal limits. Lungs/pleura: Subtle infiltrate is identified in the posterior right lower lobe concerning for pneumonia. The remainder of the lungs are clear. No significant pleural effusion or pneumothorax. Additional findings: None. IMPRESSION: Subtle right lower lobe infiltrate concerning for pneumonia. Signer Name: Arthur Ortiz Jr, MD Signed: 07/02/2019 1:20 PM Workstation Name: [id number] Transcribed By: TTR Dictated By: ARTHUR ORTIZ JR, MD Electronically Authenticated By: ARTHUR ORTIZ JR, MD Signed Date/Time: 07/02/19 1320 DD/ 1318 TD/TT: - Medical Decision Making Patient presents to the ER today complaint of right flank/right upper quadrant abdominal pain which started last night. Patient reports feeling much better after Toradol IM injection. CT abdomen pelvis shows that she has a 1 mm right UVJ stone with mild hydronephrosis. CT also shows that she has a right lower lobe consolidation consistent with pneumonia. Labs reviewed and unremarkable. UA showed no signs of infection. After further discussion with the patient, she does report that she was severely sick with URI symptoms, cough, fever and vomiting about 3 to 4 weeks ago and came here to the ER where she was diagnosed with pneumonia secondary possible COVID-19. Reviewed visit from June 12, 2019, chest x-ray at the time showed that patient had bibasilar pneumonia. She was prescribed doxycycline and told to self quarantine and she was discharged in stable condition. Patient states that she actually feels much better than when she was seen in May, she states she only has a residual cough but it is improving. She has not had any fever. she does admit that she has completed the doxycycline but she was not taking it like she was supposed to. CXR today show subtle infiltrate in the right posterior lower lobe consistent with pneumonia. This is still an improvement from the chest x-ray she had on June 11. Discussed results with patient. Patient is resting comfortably. Her pain has resolved. She is not in any acute distress. Her vital signs are normal. She i s well-appearing and nontoxic. She does not appear dehydrated. Discussed diagnosis and treatment plan with patient. She will be discharged home with a prescription for Zithromax as well as Toradol and Flomax. Recommend that she follows up with her primary care doctor for repeat x-ray to ensure resolution of this pneumonia. Also encouraged that she drinks lots of water which can help with her kidney stone. Patient stable at time of discharge. Critical care attestation.: If time is entered above; I have spent that time in minutes in the direct care of this critically ill patient, excluding procedure time. ED Disposition Clinical Impression: Kidney stone, Pneumonia Disposition: - TO HOME OR SELFCARE Is pt being admited?: No Does the pt Need Aspirin: No Condition: Stable Instructions: Bacterial Pneumonia (ED), Kidney Stones (ED) Additional Instructions: I recommend you take medications as prescribed including antibiotics which needs to be taken fully. I recommend you drink lots of water and also recommend close f/u with PCP for repeat cxr to ensure resolution of your pneumonia. Return to ED if anything changes or worsens. Prescriptions: Tamsulosin [Flomax] 0.4 mg PO QDAY #5 cap Ketorolac [Toradol] 10 mg PO Q6H PRN #20 tablet PRN Reason: Pain Azithromycin [Zithromax Z-KEN] 0 mg PO DAILY #1 pack Referrals: PRIMARY CARE, [Primary Care Provider] - 3-5 Days Time of Disposition: 14:26
--- NOTE | 2019-07-02 13:24 | XRay Report ---
CHEST 2 VIEWS INDICATION: pneumonia on abdominal ct. COMPARISON: 06/12/2019 FINDINGS: Support devices: None. Heart: Within normal limits. Lungs/pleura: Subtle infiltrate is identified in the posterior right lower lobe concerning for pneumo nilsa. The remainder of the lungs are clear. No significant pleural effusion or pneumothorax. Additional findings: None. IMPRESSION: Subtle right lower lobe infiltrate concerning for pneumonia. Signer Name: Arthur Ortiz Jr, MD Signed: 07/02/2019 1:20 PM Workstation Name: [id number]
[2019-07-03 13:20] VITALS: BP 180/120
== END 2019-07-02 14:48 | disposition home or self-care (01) ==
LOC: ED 11:09
DX: N20.0 Calculus of kidney (principal); J18.9 Pneumonia, unspecified organism; I10 Essential (primary) hypertension; Z98.890 Other specified postprocedural states; Z79.899 Other long term (current) drug therapy
CPT/HCPCS: 36415; 71046; 74176; 80053; 81001; 83690; 84703; 85025; 96372; 99284; J1885

== ENCOUNTER 2019-11-11 21:34 | Emergency (ER) | payer MEDICAID ==
--- NOTE | 2019-11-11 22:27 | XRay Report ---
RIGHT ANKLE 3 VIEW(S) INDICATION / CLINICAL INFORMATION: MAIN COMPARISON: None available. FINDINGS: BONES / JOINT(S): No acute fracture or subluxation. No significant arthritis. Ankle mortise is intact SOFT TISSUES: Mild ankle edema. ADDITIONAL FINDINGS: None. Signer Name: Ezekiel Cordon MD Signed: 11/11/2019 10:22 PM Workstation Name: [id number]
--- NOTE | 2019-11-11 23:17 | Emergency Department Report ---
ED Lower Extremity HPI - General Chief Complaint: Extremity Injury, Lower Stated Complaint: RIGHT ANKLE PAIN Time Seen by Provider: 11/11/19 22:26 Source: patient Mode of arrival: Ambulatory Limitations: No Limitations - History of Present Illness Initial Comments: 34-year-old F Albanian female was playing basketball with the kids and rolled her ankle in the process resulting in pain and swelling. -: Sudden (Occurred on yesterday) Injury: Ankle: Right Type of Injury: inversion Place: home Severity: moderate Worsens With: weight bearing, movement, palpation Associated Symptoms: able to partially bear weight - Related Data Previous Rx's Medication Instructions Recorded Last Taken Type Azithromycin [Zithromax Z-KEN] 0 mg PO DAILY #1 pack 07/02/19 Unknown Rx Ketorolac [Toradol] 10 mg PO Q6H PRN #20 tablet 07/02/19 Unknown Rx Tamsulosin [Flomax] 0.4 mg PO QDAY #5 cap 07/02/19 Unknown Rx Allergies Allergy/AdvReac Type Severity Reaction Status Date / Time No Known Allergies Allergy Unverified 07/19/18 13:09 ED Review of Systems ROS: Stated complaint: RIGHT ANKLE PAIN Other details as noted in HPI Comment: All other systems reviewed and negative ED Past Medical Hx - Past Medical History Previous Medical History?: Yes Hx Hypertension: Yes Additional medical history: Dx with COVID 19 a couple weeks ago - Recovered - Surgical History Past Surgical History?: Yes Additional Surgical History: sinus surgery, - Social History Smoking Status: Never Smoker Substance Use Type: None - Medications Home Medications: Home Medications Medication Instructions Recorded Confirmed Last Taken Type Azithromycin [Zithromax Z-KEN] 0 mg PO DAILY #1 pack 07/02/19 Unknown Rx Ketorolac [Toradol] 10 mg PO Q6H PRN #20 tablet 07/02/19 Unknown Rx Tamsulosin [Flomax] 0.4 mg PO QDAY #5 cap 07/02/19 Unknown Rx ED Physical Exam - General Limitations: No Limitations General appearance: alert, in no apparent distress - Head Head exam: Present: atraumatic, normocephalic - Eye Eye exam: Present: normal appearance, PERRL, EOMI Pupils: Present: normal accommodation - ENT ENT exam: Present: mucous membranes moist - Neck Neck exam: Present: normal inspection - Respiratory Respiratory exam: Present: normal lung sounds bilaterally. Absent: respiratory distress - Cardiovascular Cardiovascular Exam: Present: regular rate, normal rhythm. Absent: systolic murmur, diastolic murmur, rubs, gallop - GI/Abdominal GI/Abdominal exam: Present: soft, normal bowel sounds. Absent: distended, tenderness, hyperactive bowel sounds, hypoactive bowel sounds, organomegaly, mass - Extremities Exam Extremities exam: Present: normal inspection, tenderness (To the lateral malleoli region with swelling noted. Joint is stable with the drawer test is negative. Pulses 2+ capillary refills are brisk) - Back Exam Back exam: Present: normal inspection. Absent: CVA tenderness (R), CVA tenderness (L) - Neurological Exam Neurological exam: Present: alert, oriented X3, CN II-XII intact, normal gait - Psychiatric Psychiatric exam: Present: normal affect, normal mood - Skin Skin exam: Present: warm, dry, intact, normal color. Absent: rash ED Course Vital Signs 11/11/19 21:44 Temperature 98.2 F Pulse Rate 91 H Respiratory 17 Rate Blood Pressure 211/142 O2 Sat by Pulse 98 Oximetry ED Lower Extremity MDM - Radiology Data Radiology results: report reviewed [facility] [address] [place] [address] XRay Report Signed Patient: OMER ESCALANTE MR#: [id number] : 1985 Acct:[id number] Age/Sex: 34 / F ADM Date: 11/11/19 Loc: ED Attending Dr: Ordering Physician: ERICH KWONG MD Date of Service: 11/11/19 Procedure(s): XR ankle 3+V RT Accession Number(s): [id number] cc: ED MD ELENITA Fluoro Time In Minutes: RIGHT ANKLE 3 VIEW(S) INDICATION / CLINICAL INFORMATION: MAIN COMPARISON: None available. FINDINGS: BONES / JOINT(S): No acute fracture or subluxation. No significant arthritis. Ankle mortise is intact SOFT TISSUES: Mild ankle edema. ADDITIONAL FINDINGS: None. Signer Name: Karan Cordon MD Signed: 11/11/2019 10:22 PM Workstation Name: [id number] Transcribed By: RH Dictated By: KARAN CORDON III Electronically Authenticated By: KARAN CORDON III Signed Date/Time: 11/11/192221 DD/ 20 TD/TT: Critical care attestation.: If time is entered above; I have spent that time in minutes in the direct care of this critically ill patient, excluding procedure time. ED Disposition Clinical Impression: Ankle sprain Disposition: TO HOME OR SELFCARE Is pt being admited?: No Does the pt Need Aspirin: No Condition: Stable Instructions: Ankle Sprain (ED), Ankle Stirrup Splint (ED), RICE Therapy (ED), Ice Pack Application (ED) Referrals: PRIMARY CAREMD [Primary Care Provider] - 3-5 Days KARAN CLIFFORD MD [Staff Physician] - 3-5 Days
[2019-11-11 23:36] VITALS: BP 166/100
== END 2019-11-11 23:24 | disposition home or self-care (01) ==
LOC: ED 21:34
DX: S93.491A Sprain of other ligament of right ankle, initial encounter (principal); I10 Essential (primary) hypertension; Z98.890 Other specified postprocedural states; X50.1XXA Overexertion from prolonged static or awkward postures, initial encounter; Y93.89 Activity, other specified; Y92.89 Other specified places as the place of occurrence of the external cause; Y99.8 Other external cause status
CPT/HCPCS: 99283

== ENCOUNTER 2019-12-04 00:18 | Emergency (ER) | payer MEDICAID ==
[2019-12-04 02:04] LABS: Basophils # (Auto) 0.1 K/mm3 (0.0-0.1); Basophils % (Auto) 0.7 % (0.0-1.8); Eosinophils # (Auto) 0.1 K/mm3 (0.0-0.4); Eosinophils % (Auto) 0.9 % (0.0-4.3); Hematocrit 41.9 % (30.3-42.9); Hemoglobin 13.6 gm/dl (10.1-14.3); Lymphocytes # (Auto) 4.5 K/mm3 (1.2-5.4); Lymphocytes % (Auto) 36.8 % (13.4-35.0); Mean Corpuscular HGB Conc 33 % (30-34); Mean Corpuscular Volume 81 fl (79-97); Monocytes # (Auto) 0.7 K/mm3 (0.0-0.8); Monocytes % (Auto) 5.5 % (0.0-7.3); Platelet Count 250 K/mm3 (140-440); Red Blood Count 5.15 M/mm3 (3.65-5.03); Red Cell Distribution Width 14.3 % (13.2-15.2)
[2019-12-04 02:14] LABS: BUN/Creatinine Ratio 16; Blood Urea Nitrogen 14 mg/dL (7-17); Hemolysis Index 63
[2019-12-04] MEDS ORDERED: cloNIDine 0.2 MG TAB PO ONE (03:00)
--- NOTE | 2019-12-04 03:01 | XRay Report ---
CHEST 1 VIEW INDICATION: Chest Pain. COMPARISON: 07/02/2019 FINDINGS: Support devices: None. Heart: Normal. Lungs/Pleura: No acute pulmonary or pleural findings. IMPRESSION: 1. No acute findings. Signer Name: Caden Lou MD Signed: 12/04/2019 2:56 AM Workstation Name: [id number]
--- NOTE | 2019-12-04 03:01 | Emergency Department Report ---
ED Chest Pain HPI - General Chief Complaint: Chest Pain Stated Complaint: CHEST PAIN/VIKKI Time Seen by Provider: 12/04/19 02:49 Source: patient Mode of arrival: Ambulatory Limitations: No Limitations - History of Present Illness Initial Comments: Patient is 34 years old female with history of hypertension, noncompliant with medication. Patient presented to the ER complaining of left sided chest pain described at tightness with no radiation. Patient denied any fever or chills. No shortness of breath or cough. Patient stated that she is supposed to take amlodipine 10 mg but she head taking medication. Patient denied any headache,, weakness numbness or tingling sensation. Patient found to have a blood pressure of 214/140. MD Complaint: chest pain -: days(s) (2) Onset: during rest Pain Location: left chest Pain Radiation: none Severity scale (0 -10): 5 Quality: tightness Consistency: intermittent - Related Data Previous Rx's Medication Instructions Recorded Last Taken Type Azithromycin [Zithromax Z-KEN] 0 mg PO DAILY #1 pack 07/02/19 Unknown Rx Ketorolac [Toradol] 10 mg PO Q6H PRN #20 tablet 07/02/19 Unknown Rx Tamsulosin [Flomax] 0.4 mg PO QDAY #5 cap 07/02/19 Unknown Rx Allergies Allergy/AdvReac Type Severity Reaction Status Date / Time codeine Allergy Unknown Verified 12/04/19 00:53 ibuprofen [From Motrin] Allergy Unknown Verified 12/04/19 00:53 Heart Score - HEART Score History: Moderately suspicious EKG: Normal Age: < 45 Risk factors: 1-2 risk factors Troponin: < normal limit HEART Score: 2 ED Review of Systems ROS: Stated complaint: CHEST PAIN/VIKKI Other details as noted in HPI Comment: All other systems reviewed and negative Constitutional: denies: chills, fever Respiratory: denies: cough, shortness of breath, SOB with exertion, SOB at rest Cardiovascular: chest pain. denies: palpitations, dyspnea on exertion Gastrointestinal: denies: abdominal pain, nausea, vomiting Musculoskeletal: denies: back pain Neurological: denies: headache, weakness, numbness, paresthesias, confusion, abnormal gait ED Past Medical Hx - Past Medical History Previous Medical History?: Yes Hx Hypertension: Yes Additional medical history: Covid in May - Surgical History Past Surgical History?: Yes Additional Surgical History: sinus surgery, - Social History Smoking Status: Never Smoker Substance Use Type: None - Medications Home Medications: Home Medications Medication Instructions Recorded Confirmed Last Taken Type Azithromycin [Zithromax Z-KEN] 0 mg PO DAILY #1 pack 07/02/19 Unknown Rx Ketorolac [Toradol] 10 mg PO Q6H PRN #20 tablet 07/02/19 Unknown Rx Tamsulosin [Flomax] 0.4 mg PO QDAY #5 cap 07/02/19 Unknown Rx ED Physical Exam - General Limitations: No Limitations General appearance: alert, in no apparent distress - Head Head exam: Present: atraumatic, normocephalic - ENT ENT exam: Present: normal exam, normal orophraynx, mucous membranes moist - Neck Neck exam: Present: normal inspection, full ROM. Absent: tenderness, meningismus - Respiratory Respiratory exam: Present: normal lung sounds bilaterally - Cardiovascular Cardiovascular Exam: Present: regular rate, normal rhythm, normal heart sounds - GI/Abdominal GI/Abdominal exam: Present: soft, normal bowel sounds. Absent: distended, tenderness, guarding, rebound, rigid, organomegaly, mass, bruit, pulsatile mass, hernia - Extremities Exam Extremities exam: Present: normal inspection, full ROM, normal capillary refill. Absent: pedal edema, calf tenderness - Back Exam Back exam: Present: normal inspection, full ROM. Absent: CVA tenderness (R), CVA tenderness (L) - Neurological Exam Neurological exam: Present: alert, oriented X3, CN II-XII intact - Psychiatric Psychiatric exam: Present: normal mood - Skin Skin exam: Present: warm, intact, normal color ED Course Vital Signs 12/04/19 12/04/19 12/04/19 00:50 02:56 03:01 Temperature 98.9 F 98.6 F Pulse Rate 103 H 88 Respiratory 16 18 14 Rate Blood Pressure 214/140 210/129 Blood Pressure 210/129 [Right] O2 Sat by Pulse 98 98 Oximetry 12/04/19 12/04/19 12/04/19 03:27 03:31 04:01 Temperature Pulse Rate 86 82 82 Respiratory 24 12 16 Rate Blood Pressure 210/129 155/110 Blood Pressure 186/120 [Right] O2 Sat by Pulse 97 99 96 Oximetry 12/04/19 04:31 Temperature Pulse Rate 83 Respiratory 15 Rate Blood Pressure 135/99 Blood Pressure [Right] O2 Sat by Pulse 99 Oximetry SAM score - Sam Score Age > 65: (0) No Aspirin use within the Past 7 Days: (0) No 3 or more CAD Risk Factors: (0) No 2 or more Angina events in past 24 hrs: (0) No Known CAD with more than 50% Stenosis: (0) No Elevated Cardiac Markers: (0) No ST Deviation Greater than 0.5mm: (0) No SAM Score: 0 ED Medical Decision Making - Lab Data Result diagrams: 12/04/19 01:06 12/04/19 01:06 - EKG Data -: EKG Interpreted by [facility] EKG shows normal: sinus rhythm Rate: normal - Radiology Data Radiology results: report reviewed - Medical Decision Making Patient is 34 years old female with history of hypertension, noncompliant with medication. Patient presented to the ER complaining of left sided chest pain described at tightness with no radiation. Patient denied any fever or chills. No shortness of breath or cough. Patient stated that she is supposed to take amlodipine 10 mg but she head taking medication. Patient denied any headache,, weakness numbness or tingling sensation. Patient found to have a blood pressure of 214/140. EKG showed no ST elevation or depression. Chest x-ray is unremarkable. Labs reviewed and is unremarkable including negative troponin x2. Patient received clonidine 0.2 mg and that helped her blood pressure to 135/78. Patient stated that her chest pain is completely resolved. Patient does counseled about medication compliance and complication of hypertension. Patient given prescription for amlodipine and advised to follow-up with her primary doctor in the next 2 to 3 days and to return to the ER if she develop any new symptoms. Critical care attestation.: If time is entered above; I have spent that time in minutes in the direct care of this critically ill patient, excluding procedure time. ED Disposition Clinical Impression: Chest pain, Malignant hypertension Disposition: - TO HOME OR SELFCARE Is pt being admited?: No Condition: Stable Instructions: Chest Pain (ED), Hypertension (ED) Referrals: [facility] [Provider Group] - 3-5 Days
[2019-12-04 04:32] VITALS: BP 135/99
== END 2019-12-04 04:56 | disposition home or self-care (01) ==
LOC: ED 00:18
DX: R07.89 Other chest pain (principal); I10 Essential (primary) hypertension; Z98.890 Other specified postprocedural states; Z88.6 Allergy status to analgesic agent
CPT/HCPCS: 36415; 71045; 80048; 83880; 84484; 84703; 85025; 93005

== ENCOUNTER 2020-01-11 13:22 | Emergency (ER) | payer MEDICAID ==
--- NOTE | 2020-01-11 14:10 | Event Note ---
ED Screening Note ED Screening Note: headache frontal that began yesterday morning elevated BP +blurry vision states she did not take her BP medication for a week states she took one tablet of amlodipine 10 mg yesterday +nausea no CP no SOB no numbness no weakness allergy: codeine, ibuprofen LNMP: beginning of december This initial assessment/diagnostic orders/clinical plan/treatment(s) is/are subject to change based on patients health status, clinical progression and re- assessment by fellow clinical providers in the ED. Further treatment and workup at subsequent clinical providers discretion. Patient/guardian urged not to elope from the ED as their condition may be serious if not clinically assessed and managed. Initial orders include: labs EKG ct head
[2020-01-11] MEDS ORDERED: MORPHINE 4 MG/1 ML INJ IV ONE (14:32)
[2020-01-11] MEDS ORDERED: METOCLOPRAMIDE 10 MG/2 ML INJ IV ONE (14:32)
[2020-01-11 14:38] LABS: Basophils # (Auto) 0.1 K/mm3 (0.0-0.1); Basophils % (Auto) 0.5 % (0.0-1.8); Eosinophils # (Auto) 0.1 K/mm3 (0.0-0.4); Eosinophils % (Auto) 0.6 % (0.0-4.3); Hematocrit 45.5 % (30.3-42.9); Hemoglobin 15.4 gm/dl (10.1-14.3); Lymphocytes # (Auto) 2.9 K/mm3 (1.2-5.4); Lymphocytes % (Auto) 23.3 % (13.4-35.0); Mean Corpuscular HGB Conc 34 % (30-34); Mean Corpuscular Volume 82 fl (79-97); Monocytes # (Auto) 0.6 K/mm3 (0.0-0.8); Monocytes % (Auto) 4.6 % (0.0-7.3); Platelet Count 301 K/mm3 (140-440); Red Blood Count 5.57 M/mm3 (3.65-5.03); Red Cell Distribution Width 14.4 % (13.2-15.2)
--- NOTE | 2020-01-11 14:42 | Emergency Department Report ---
HPI - General Chief Complaint: High BP Time Seen by Provider: 01/11/20 14:06 - HPI HPI: This is a 34-year-old -[place] female presents to the emergency department from home with complaint of a 2-day history of a headache and uncontrolled blood pressure. The patient does have a history of hypertension for which she was previously on amlodipine but the patient admits to noncompliance with her medication as she finds it difficult to swallow the pills. Patient does not have a primary care physician for follow-up but says that she does follow-up with her [employer]. She tried some Tylenol for her symptoms and did not get any relief. Currently she rates her headache at 8 out of 10 in intensity. She denies any fever, vision change, numbness or paresthesias, slurred speech, or any neurological deficits. No recent travel or sick contacts at home. The patient's headache is more generalized but she describes it as being "in the front and the back". ED Past Medical Hx - Past Medical History Hx Hypertension: Yes Additional medical history: Covid in May - Surgical History Additional Surgical History: sinus surgery, - Social History Smoking Status: Never Smoker Substance Use Type: None - Medications Home Medications: Home Medications Medication Instructions Recorded Confirmed Last Taken Type Azithromycin [Zithromax Z-KEN] 0 mg PO DAILY #1 pack 07/02/19 Unknown Rx Ketorolac [Toradol] 10 mg PO Q6H PRN #20 tablet 07/02/19 Unknown Rx Tamsulosin [Flomax] 0.4 mg PO QDAY #5 cap 07/02/19 Unknown Rx Butalb/Acetamin/Caff 50-325-40 1 tab PO Q8HR PRN #12 tablet 01/11/20 Unknown Rx [Fioricet 50-325-40] amLODIPine 10 mg PO DAILY #30 tab 01/11/20 Unknown Rx ED Review of Systems ROS: Stated complaint: HEAD PAIN/STOMACH PAIN Other details as noted in HPI Comment: All other systems reviewed and negative Constitutional: denies: chills, fever Eyes: denies: eye pain, eye discharge ENT: denies: ear pain, throat pain Respiratory: denies: cough, shortness of breath Cardiovascular: denies: palpitations, edema Gastrointestinal: denies: abdominal pain, vomiting Genitourinary: denies: dysuria, discharge Musculoskeletal: denies: back pain, arthralgia Skin: denies: rash, lesions Neurological: headache. denies: weakness, numbness, paresthesias Physical Exam - Physical Exam Vital Signs: Vital Signs 01/11/20 01/11/20 13:45 13:48 Temperature 98.1 F Pulse Rate 79 Respiratory 24 Rate Blood Pressure 186/142 O2 Sat by Pulse 99 Oximetry Physical Exam: GENERAL: The patient is well-developed well-nourished. HENT: Normocephalic. Atraumatic. Patient has moist mucous membranes. EYES: Extraocular motions are intact. No nystagmus. NECK: Supple. Trachea is midline. CHEST/LUNGS: Clear to auscultation. There is no respiratory distress noted. HEART/CARDIOVASCULAR: Regular. There is no tachycardia. There is no murmur. ABDOMEN: Abdomen is soft, nontender. Patient has normal bowel sounds. SKIN: Skin is warm and dry. NEURO: The patient is awake, alert, and oriented. The patient is cooperative. The patient has no focal neurologic deficits. Normal speech. Cranial nerves II through XII grossly intact. No facial asymmetry. MUSCULOSKELETAL: There is no tenderness or deformity. ED Course Vital Signs 01/11/20 01/11/20 13:45 13:48 Temperature 98.1 F Pulse Rate 79 Respiratory 24 Rate Blood Pressure 186/142 O2 Sat by Pulse 99 Oximetry - Reevaluation(s) Reevaluation #1: 01/11/20 18:32 Lab Results 01/11/20 01/11/20 01/11/20 Range/Units 14:23 14:23 14:23 WBC 12.6 H (4.5-11.0) K/mm3 RBC 5.57 H (3.65-5.03) M/mm3 Hgb 15.4 H (10.1-14.3) gm/dl Hct 45.5 H (30.3-42.9) % MCV 82 (79-97) fl MCH 28 (28-32) pg MCHC 34 (30-34) % RDW 14.4 (13.2-15.2) % Plt Count 301 (140-440) K/mm3 Lymph % (Auto) 23.3 (13.4-35.0) % [place] % (Auto) 4.6 (0.0-7.3) % Eos % (Auto) 0.6 (0.0-4.3) % Baso % (Auto) 0.5 (0.0-1.8) % Lymph # (Auto) 2.9 (1.2-5.4) K/mm3 [place] # (Auto) 0.6 (0.0-0.8) K/mm3 Eos # (Auto) 0.1 (0.0-0.4) K/mm3 Baso # (Auto) 0.1 (0.0-0.1) K/mm3 Seg Neutrophils % 71.0 H (40.0-70.0) % Seg Neutrophils # 8.9 H (1.8-7.7) K/mm3 Sodium 136 L (137-145) mmol/L Potassium 4.6 (3.6-5.0) mmol/L Chloride 101.9 (98-107) mmol/L Carbon Dioxide 23 (22-30) mmol/L Anion Gap 16 mmol/L BUN 9 (7-17) mg/dL Creatinine 0.7 (0.6-1.2) mg/dL Estimated GFR > 60 ml/min BUN/Creatinine Ratio 13 % Glucose 107 H (65-100) mg/dL Calcium 9.7 (8.4-10.2) mg/dL Total Bilirubin 0.30 (0.1-1.2) mg/dL AST 16 (5-40) units/L ALT 19 (7-56) units/L Alkaline Phosphatase 101 (35-129) units/L Troponin T < 0.010 (0.00-0.029) ng/mL Total Protein 7.9 (6.3-8.2) g/dL Albumin 4.6 (3.9-5) g/dL Albumin/Globulin Ratio 1.4 % HCG, Qual Negative (Negative) ED Medical Decision Making - Lab Data Result diagrams: 01/11/20 14:23 01/11/20 14:23 - EKG Data -: EKG Interpreted by Me EKG shows normal: sinus rhythm, axis, intervals, QRS complexes, ST-T waves Rate: normal - EKG Data When compared to previous EKG there are: previous EKG unavailable Interpretation: normal EKG - Radiology Data Radiology results: report reviewed CT head/brain wo con INDICATION / CLINICAL INFORMATION: 34 years Female; [place], blurry vision, nausea, HTN urgency. TECHNIQUE: Routine CT head without contrast. All CT scans at this location are performed using CT dose reduction for ALARA by means of automated exposure control. COMPARISON: None. FINDINGS: BRAIN / INTRACRANIAL CONTENTS: No acute hemorrhage, mass effect, midline shift, hydrocephalus, or acute, large territorial infarct. No signs of significant atrophy or chronic infarct. No significant white matter abnormality seen. CRANIOCERVICAL JUNCTION: No significant abnormality. ORBITS: No significant abnormality of visualized orbits. SINUSES / MASTOIDS: No significant abnormality in the visualized paranasal sinuses or mastoid air cells. ADDITIONAL FINDINGS: None. IMPRESSION: 1. No focal mass, hemorrhage, hydrocephalus, or acute, large territorial infarct. - Medical Decision Making This patient presents with a complaint of a generalized headache and uncontrolled blood pressure. The patient has a history of hypertension but has not been compliant with her medication. On examination she does not have any focal, motor or sensory deficits and her cranial nerves are intact. A CT scan of the head without contrast was ordered through triage and completed and it did not show any signs of any bleed, shift, mass, ischemia, or any other acute process. Patient was given 2 doses of IV labetalol, 1 dose of IV analgesia and antiemetic. Upon reevaluation the patient is feeling improved. Her blood pres sure has come down to a more reasonable level. She does not appear to have any emergent medical condition. The patient was seen ambulatory in the emergency department and both appears and feels stable. Patient was given referrals for primary care. She was given a prescription for her blood pressure medication and for a few Fioricet. We discussed staying away from foods that are high in salt and caffeinated products and keeping a blood pressure log. She will return to the emergency department with any worsening of her symptoms or with any acute distress. Critical Care Time: No Critical care attestation.: If time is entered above; I have spent that time in minutes in the direct care of this critically ill patient, excluding procedure time. ED Disposition Clinical Impression: Headache Qualifiers: Headache type: unspecified Headache chronicity pattern: unspecified pattern Intractability: not intractable Qualified Code(s): R51.9 - Headache, unspecified Hypertension Qualifiers: Hypertension type: essential hypertension Qualified Code(s): I10 - Essential (primary) hypertension Disposition: - TO HOME OR SELFCARE Is pt being admited?: No Condition: Stable Instructions: Managing Your Hypertension, Hypertension, Adult, Hypertension (ED) Additional Instructions: Please follow-up with a primary care physician in the next few days. Take your blood pressure medications as prescribed. Try to stay away from foods that are high in salt, caffeinated products to help with your blood pressure. Keep a blood pressure log. You have been prescribed a medication that is sedating and therefore should not be taken prior to driving, working, and responsible for children and in no way s hould be mixed with alcohol of any quantity. Return to the emergency department with any worsening of your symptoms, new or concerning symptoms not addressed during this current emergency department visit, or with any acute distress. Prescriptions: amLODIPine 10 mg PO DAILY #30 tab Butalb/Acetamin/Caff 50-325-40 [Fioricet 50-325-40] 1 tab PO Q8HR PRN #12 tablet PRN Reason: Headache Referrals: PATRICK CHILDS MD [Staff Physician] - 3-5 Days [facility] [Provider Group] - 3-5 Days Time of Disposition: 17:10
[2020-01-11 14:58] LABS: Alanine Aminotransferase 19 units/L (7-56); Albumin 4.6 g/dL (3.9-5); Blood Urea Nitrogen 9 mg/dL (7-17); Calcium 9.7 mg/dL (8.4-10.2); Hemolysis Index 10
[2020-01-11 14:59] LABS: BUN/Creatinine Ratio 13
--- NOTE | 2020-01-11 16:31 | Cat Scan Report ---
CT head/brain wo con INDICATION / CLINICAL INFORMATION: 34 years Female; [place], blurry vision, nausea, HTN urgency. TECHNIQUE: Routine CT head without contrast. All CT scans at this location are performed using CT dos e reduction for ALARA by means of automated exposure control. COMPARISON: None. FINDINGS: BRAIN / INTRACRANIAL CONTENTS: No acute hemorrhage, mass effect, midline shift, hydrocephalus, or acu te, large territorial infarct. No signs of significant atrophy or chronic infarct. No significant whi te matter abnormality seen. CRANIOCERVICAL JUNCTION: No significant abnormality. ORBITS: No significant abnormality of visualized orbits. SINUSES / MASTOIDS: No significant abnormality in the visualized paranasal sinuses or mastoid air jessika ls. ADDITIONAL FINDINGS: None. IMPRESSION: 1. No focal mass, hemorrhage, hydrocephalus, or acute, large territorial infarct. Signer Name: Richard iMles MD, III Signed: 01/11/2020 4:27 PM Workstation Name: [id number]
[2020-01-11 17:24] VITALS: BP 156/104
== END 2020-01-11 17:22 | disposition home or self-care (01) ==
LOC: ED 13:22
DX: R51.9 Headache, unspecified (principal); I10 Essential (primary) hypertension; Z98.890 Other specified postprocedural states; Z79.2 Long term (current) use of antibiotics; Z79.899 Other long term (current) drug therapy; Z88.8 Allergy status to other drugs, medicaments and biological substances
CPT/HCPCS: 36415; 70450; 80053; 84484; 84703; 85025; 93005; 96374; 96375; 96376; 99284; J2270; J2765

== ENCOUNTER 2020-01-31 19:27 | Emergency (ER) | payer MEDICAID ==
[2020-01-31] MEDS ORDERED: KETOROLAC 30 MG/1 ML INJ IM ONE (21:25)
--- NOTE | 2020-01-31 21:56 | Emergency Department Report ---
ED Back Pain/Injury HPI - General Chief Complaint: Back Pain/Injury Stated Complaint: back pain Time Seen by Provider: 01/31/20 21:19 Source: patient Limitations: No Limitations - History of Present Illness Initial Comments: Patient is a 34-year-old -[place] female who presents for left low back pain rated as 7/10 x3 days. Patient states pain after lifting heavy box above head. Pain described as burning tingling radiating to left lower leg and left flank. There is no fever, chills, nausea vomiting, patient denies dysuria, hematuria, frequency or urgency. Patient does have history of renal stones. Advises he does not think this is a kidney stone. Patient is not last menstrual cycle 2 weeks ago. There is no numbness, tingling, loss or decrease in bladder or bowel function. Symptoms are relieved by rest. Symptoms are exacerbated by bending, twisting , and reaching. MD Complaint: back pain - Related Data Previous Rx's Medication Instructions Recorded Last Taken Type Azithromycin [Zithromax Z-KEN] 0 mg PO DAILY #1 pack 07/02/19 Unknown Rx Ketorolac [Toradol] 10 mg PO Q6H PRN #20 tablet 07/02/19 Unknown Rx Tamsulosin [Flomax] 0.4 mg PO QDAY #5 cap 07/02/19 Unknown Rx Butalb/Acetamin/Caff 50-325-40 1 tab PO Q8HR PRN #12 tablet 01/11/20 Unknown Rx [Fioricet 50-325-40] amLODIPine 10 mg PO DAILY #30 tab 01/11/20 Unknown Rx Ketorolac [Toradol] 10 mg PO Q6H PRN #12 tablet 01/31/20 Unknown Rx Nitrofurantoin Fajardo/M-Cryst 100 mg PO Q12HR 7 Days #14 capsule 01/31/20 Unknown Rx [Macrobid CAP] Allergies Allergy/AdvReac Type Severity Reaction Status Date / Time codeine Allergy Unknown Verified 01/11/20 13:42 ibuprofen [From Motrin] Allergy Unknown Verified 01/11/20 13:42 ED Review of Systems ROS: Stated complaint: back pain Other details as noted in HPI Constitutional: denies: chills, fever Eyes: denies: eye pain, eye discharge, vision change ENT: denies: ear pain, throat pain Respiratory: denies: cough, shortness of breath, wheezing Cardiovascular: denies: chest pain, palpitations Endocrine: no symptoms reported Gastrointestinal: denies: abdominal pain, nausea, diarrhea Genitourinary: denies: urgency, dysuria, discharge Musculoskeletal: back pain Skin: denies: rash, lesions Neurological: denies: headache, weakness, numbness, paresthesias, confusion, vertigo Psychiatric: denies: anxiety, depression Hematological/Lymphatic: denies: easy bleeding, easy bruising ED Past Medical Hx - Past Medical History Previous Medical History?: Yes Hx Hypertension: Yes Hx Kidney Stones: Yes Additional medical history: Covid in May - Surgical History Past Surgical History?: Yes Additional Surgical History: sinus surgery, - Social History Smoking Status: Never Smoker Substance Use Type: None - Medications Home Medications: Home Medications Medication Instructions Recorded Confirmed Last Taken Type Azithromycin [Zithromax Z-KEN] 0 mg PO DAILY #1 pack 07/02/19 Unknown Rx Ketorolac [Toradol] 10 mg PO Q6H PRN #20 tablet 07/02/19 Unknown Rx Tamsulosin [Flomax] 0.4 mg PO QDAY #5 cap 07/02/19 Unknown Rx Butalb/Acetamin/Caff 50-325-40 1 tab PO Q8HR PRN #12 tablet 01/11/20 Unknown Rx [Fioricet 50-325-40] amLODIPine 10 mg PO DAILY #30 tab 01/11/20 Unknown Rx Ketorolac [Toradol] 10 mg PO Q6H PRN #12 tablet 01/31/20 Unknown Rx Nitrofurantoin Fajardo/M-Cryst 100 mg PO Q12HR 7 Days #14 capsule 01/31/20 Unknown Rx [Macrobid CAP] ED Physical Exam - General Limitations: No Limitations General appearance: alert, in no apparent distress - Head Head exam: Present: atraumatic, normocephalic - Eye Eye exam: Present: normal appearance, EOMI Pupils: Present: normal accommodation - ENT ENT exam: Present: mucous membranes moist - Neck Neck exam: Present: normal inspection, full ROM. Absent: tenderness - Respiratory Respiratory exam: Present: normal lung sounds bilaterally. Absent: respiratory distress, wheezes, stridor, chest wall tenderness - Cardiovascular Cardiovascular Exam: Present: regular rate, normal rhythm, normal heart sounds. Absent: systolic murmur, diastolic murmur, rubs, gallop - GI/Abdominal GI/Abdominal exam: Present: soft, normal bowel sounds. Absent: distended, te nderness, guarding, rebound, rigid, bruit, hernia - Rectal Rectal exam: Present: deferred - Extremities Exam Extremities exam: Present: normal inspection, full ROM. Absent: tenderness - Back Exam Back exam: Present: full ROM, tenderness, paraspinal tenderness. Absent: CVA tenderness (R), CVA tenderness (L) (Situation with), muscle spasm - Expanded Back Exam Expanded Back exam: Absent: saddle anesthesia Back exam: Negative Straight Leg Raising: Left, Right - Neurological Exam Neurological exam: Present: alert, oriented X3, CN II-XII intact, normal gait, reflexes normal - Psychiatric Psychiatric exam: Present: normal affect, normal mood - Skin Skin exam: Present: warm, dry, intact, normal color. Absent: rash ED Course Vital Signs 01/31/20 20:59 Temperature 99.5 F Pulse Rate 119 H Respiratory 20 Rate Blood Pressure 176/101 O2 Sat by Pulse 97 Oximetry ED Medical Decision Making - Lab Data Labs 01/31/20 Unknown Urine Color Yellow Urine Turbidity Slightly-cloudy Urine pH 6.0 Ur Specific [place] 1.019 Urine Protein <15 mg/dl Urine Glucose (UA) Neg Urine Ketones Neg Urine Blood Neg Urine Nitrite Neg Ur Reducing Substances Not Reportable Urine Bilirubin Neg Urine Ictotest Not Reportable Urine Urobilinogen < 2.0 Ur Leukocyte Esterase Lg Urine WBC (Auto) 35.0 H Urine RBC (Auto) 4.0 U Epithel Cells (Auto) 9.0 Urine Mucus Few Urine HCG, Qual Negative - Radiology Data Radiology results: report reviewed, image reviewed Findings Reporting MD: Caden Lou Dictation Time: January 31, 2020 18:28 [employer] Operations Engineer: Not available [employer] Teacher Date: ABDOMEN 3 VIEW(S) INDICATION / CLINICAL INFORMATION: abd pain, diarrhea, gas pain. COMPARISON: None available. FINDINGS: TUBES / LINES: None. BOWEL GAS PATTERN: No significant abnormality. FREE AIR / EXTRALUMINAL GAS: None seen. ADDITIONAL FINDINGS: No acute findings on the included chest radiograph. IMPRESSION: 1. No significant abnormality. Signer Name: Caden Lou MD Signed: 01/31/2020 6:28 PM Workstation Name: [id number] - Medical Decision Making symptoms are improved to 0/10 a this time, pt it voiding without difficulty,. VS noted normal at this time. There is no fever , chilld, no dysuria pt will be dc'd to home with rx pt verbalizesd agrewement iand understanding of same. Critical care attestation.: If time is entered above; I have spent that time in minutes in the direct care of this critically ill patient, excluding procedure time. ED Disposition Clinical Impression: History of renal colic UTI (urinary tract infection) Qualifiers: Urinary tract infection type: acute cystitis Hematuria presence: without hematuria Qualified Code(s): N30.00 - Acute cystitis without hematuria Disposition: DC-01 TO HOME OR SELFCARE Is pt being admited?: No Does the pt Need Aspirin: No Condition: Stable Instructions: Urinary Tract Infection, Adult Prescriptions: Nitrofurantoin Fajardo/M-Cryst [Macrobid CAP] 100 mg PO Q12HR 7 Days #14 capsule Ketorolac [Toradol] 10 mg PO Q6H PRN #12 tablet PRN Reason: Pain Referrals: VAZQUEZ MCCAULEY MD [Staff Physician] - 3-5 Days TEAGAN HULL MD [Staff Physician] - 3-5 Days Forms: Work/School Release Form(ED) Time of Disposition: 23:41
[2020-01-31 22:22] LABS: HCG Qualitative,Urine Negative (Negative)
[2020-01-31 22:26] LABS: Bilirubin,Urine NEG (Negative); Blood,Urine NEG (Negative); Color,Urine Yellow (Yellow); Mucus,Urine FEW /HPF; Protein,Urine <15 mg/dL mg/dL (Negative); Urobilinogen,Urine < 2.0 mg/dL (<2.0)
--- NOTE | 2020-01-31 23:06 | XRay Report ---
LUMBAR SPINE HISTORY: Lower back pain COMPARISON: None. TECHNIQUE: 2 view(s) of the lumbar spine obtained. FINDINGS: Vertebrae: Normal alignment. No displaced fracture or significant abnormality. Disc Spaces:Mild disc space narrowing at L4-5. Remaining disc spaces appear maintained. Facet Joints:No significant abnormality. Additional findings: None. IMPRESSION: 1. No acute abnormality of the lumbar spine. Mild degenerative disc disease at L4-5. Signer Name: Alyson Sarabia MD Signed: 01/31/2020 11:01 PM Workstation Name: [id number]
[2020-01-31] MEDS ORDERED: NITROFURANTOIN MONOHYD/M-CRYST 100 MG CAP PO ONE (23:31)
[2020-01-31] MEDS ORDERED: KETOROLAC 10 MG TAB PO ONE (23:31)
[2020-02-01] MEDS ORDERED: cloNIDine 0.1 MG TAB ONE (00:13)
[2020-02-01] MEDS ORDERED: cloNIDine 0.1 MG TAB PO ONE (00:13)
[2020-02-01 02:00] VITALS: BP 191/126
== END 2020-02-01 00:45 | disposition home or self-care (01) ==
LOC: ED 19:27
DX: N39.0 Urinary tract infection, site not specified (principal); N23 Unspecified renal colic; I10 Essential (primary) hypertension; Z98.890 Other specified postprocedural states; Z79.2 Long term (current) use of antibiotics; Z79.899 Other long term (current) drug therapy; Z88.8 Allergy status to other drugs, medicaments and biological substances
CPT/HCPCS: 72100; 81001; 81025; 87086; 96372; 99284; J1885

== ENCOUNTER 2020-04-28 12:16 | Emergency (ER) | payer MEDICAID ==
[2020-04-28] MEDS ORDERED: cloNIDine 0.2 MG TAB PO ONE (13:03)
[2020-04-28 13:56] LABS: Bilirubin,Urine NEG (Negative); Blood,Urine NEG (Negative); Color,Urine Yellow (Yellow); Mucus,Urine FEW /HPF; Protein,Urine <15 mg/dL mg/dL (Negative); Urobilinogen,Urine < 2.0 mg/dL (<2.0)
[2020-04-28 14:04] LABS: Basophils # (Auto) 0.1 K/mm3 (0.0-0.1); Basophils % (Auto) 1.1 % (0.0-1.8); Eosinophils # (Auto) 0.1 K/mm3 (0.0-0.4); Eosinophils % (Auto) 0.9 % (0.0-4.3); Hematocrit 41.1 % (30.3-42.9); Hemoglobin 13.6 gm/dl (10.1-14.3); Lymphocytes # (Auto) 2.7 K/mm3 (1.2-5.4); Lymphocytes % (Auto) 28.3 % (13.4-35.0); Mean Corpuscular HGB Conc 33 % (30-34); Mean Corpuscular Volume 81 fl (79-97); Monocytes # (Auto) 0.7 K/mm3 (0.0-0.8); Platelet Count 242 K/mm3 (140-440); Red Cell Distribution Width 14.5 % (13.2-15.2)
[2020-04-28 14:22] LABS: BUN/Creatinine Ratio 15; Blood Urea Nitrogen 12 mg/dL (7-17); Hemolysis Index 34
[2020-04-28 14:24] VITALS: BP 186/120
--- NOTE | 2020-04-28 14:28 | Vascular Lab Report ---
DUPLEX DOPPLER LOWER EXTREMITY VEINS, LEFT INDICATION / CLINICAL INFORMATION: left leg pain. TECHNIQUE: Duplex doppler imaging was performed through the veins of the left lower extremity using venous compr ession and other maneuvers. COMPARISON: None available. FINDINGS: LEFT COMMON FEMORAL VEIN: Negative. LEFT FEMORAL VEIN: Negative. LEFT POPLITEAL VEIN: Negative. LEFT CALF VEINS: Negative. ADDITIONAL FINDINGS: None. IMPRESSION: 1. No sonographic evidence for DVT in the left lower extremity. Signer Name: Dani Doe MD Signed: 04/28/2020 2:24 PM Workstation Name: [id number]
--- NOTE | 2020-04-28 15:16 | Emergency Department Report ---
ED Lower Extremity HPI - General Chief Complaint: Extremity Problem,Nontraumatic Stated Complaint: LT LEG PAIN Time Seen by Provider: 04/28/20 12:34 Source: patient Mode of arrival: Ambulatory Limitations: No Limitations - History of Present Illness Initial Comments: This is a 35-year-old female nontoxic, well nourished in appearance, no acute signs of distress presents to the ED with c/o of left leg pain x several days. Patient denies any injuries or trauma. Patient denies any radiation of pain. Patient denies any numbness, tingling, fever, chills, nausea, vomiting, chest pain, shortness of breath, headache, stiff neck. Patient denies any joint swelling or joint redness. Patient denies decreased range of motion. Patient stated has decreased gait due to pain. Patient stated allergies to codeine and ibuprofen. Past medical history "hypertension which patient is noncompliant with her Norvasc 10 mg medication for the past month. MD Complaint: leg injury -: days(s) Injury: Leg: Left Severity: mild Severity scale (0 -10): 8 Improves With: immobilization Worsens With: weight bearing Associated Symptoms: ambulatory. denies: snap/pop sensation, swelling, numbness, tingling, unable to bear weight, able to partially bear weight - Related Data Previous Rx's Medication Instructions Recorded Last Taken Type Azithromycin [Zithromax Z-KEN] 0 mg PO DAILY #1 pack 07/02/19 Unknown Rx Ketorolac [Toradol] 10 mg PO Q6H PRN #20 tablet 07/02/19 Unknown Rx Tamsulosin [Flomax] 0.4 mg PO QDAY #5 cap 07/02/19 Unknown Rx Butalb/Acetamin/Caff 50-325-40 1 tab PO Q8HR PRN #12 tablet 01/11/20 Unknown Rx [Fioricet 50-325-40] amLODIPine 10 mg PO DAILY #30 tab 01/11/20 Unknown Rx Ketorolac [Toradol] 10 mg PO Q6H PRN #12 tablet 01/31/20 Unknown Rx Nitrofurantoin Benson/M-Cryst 100 mg PO Q12HR 7 Days #14 capsule 01/31/20 Unknown Rx [Macrobid CAP] Sulfamethoxazole/Trimethoprim 1 each PO BID #14 tablet 04/28/20 Unknown Rx [Bactrim DS TAB] amLODIPine 10 mg PO DAILY #30 tab 04/28/20 Unknown Rx Allergies Allergy/AdvReac Type Severity Reaction Status Date / Time codeine Allergy Unknown Verified 01/11/20 13:42 ibuprofen [From Motrin] Allergy Unknown Verified 01/11/20 13:42 ED Review of Systems ROS: Stated complaint: LT LEG PAIN Other details as noted in HPI Constitutional: denies: chills, fever Eyes: denies: eye pain, eye discharge, vision change ENT: denies: ear pain, throat pain Respiratory: denies: cough, shortness of breath, wheezing Cardiovascular: denies: chest pain, palpitations Endocrine: no symptoms reported Gastrointestinal: denies: abdominal pain, nausea, diarrhea Genitourinary: denies: urgency, dysuria, discharge Musculoskeletal: denies: back pain, joint swelling, arthralgia Skin: denies: rash, lesions Neurological: denies: headache, weakness, paresthesias Psychiatric: denies: anxiety, depression Hematological/Lymphatic: denies: easy bleeding, easy bruising ED Past Medical Hx - Past Medical History Previous Medical History?: Yes Hx Hypertension: Yes Hx Kidney Stones: Yes Additional medical history: Covid in May - Surgical History Past Surgical History?: Yes Additional Surgical History: sinus surgery, - Social History Smoking Status: Never Smoker Substance Use Type: None - Medications Home Medications: Home Medications Medication Instructions Recorded Confirmed Last Taken Type Azithromycin [Zithromax Z-KEN] 0 mg PO DAILY #1 pack 07/02/19 Unknown Rx Ketorolac [Toradol] 10 mg PO Q6H PRN #20 tablet 07/02/19 Unknown Rx Tamsulosin [Flomax] 0.4 mg PO QDAY #5 cap 07/02/19 Unknown Rx Butalb/Acetamin/Caff 50-325-40 1 tab PO Q8HR PRN #12 tablet 01/11/20 Unknown Rx [Fioricet 50-325-40] amLODIPine 10 mg PO DAILY #30 tab 01/11/20 Unknown Rx Ketorolac [Toradol] 10 mg PO Q6H PRN #12 tablet 01/31/20 Unknown Rx Nitrofurantoin Benson/M-Cryst 100 mg PO Q12HR 7 Days #14 capsule 01/31/20 Unknown Rx [Macrobid CAP] Sulfamethoxazole/Trimethoprim 1 each PO BID #14 tablet 04/28/20 Unknown Rx [Bactrim DS TAB] amLODIPine 10 mg PO DAILY #30 tab 04/28/20 Unknown Rx ED Physical Exam - General Limitations: No Limitations General appearance: alert, in no apparent distress - Head Head exam: Present: atraumatic, normocephalic - Eye Eye exam: Present: normal appearance - Neck Neck exam: Present: normal inspection, full ROM - Respiratory Respiratory exam: Present: normal lung sounds bilaterally. Absent: respiratory distress, wheezes, rales, rhonchi, stridor, chest wall tenderness, accessory muscle use, decreased breath sounds, prolonged expiratory - Cardiovascular Cardiovascular Exam: Present: regular rate, normal rhythm, normal heart sounds. Absent: irregular rhythm, systolic murmur, diastolic murmur, rubs, gallop - GI/Abdominal GI/Abdominal exam: Present: soft, normal bowel sounds. Absent: distended, tenderness, guarding, rebound, rigid, diminished bowel sounds - Extremities Exam Extremities exam: Present: normal inspection, full ROM, tenderness, normal capillary refill. Absent: joint swelling, calf tenderness - Expanded Lower Extremity Exam Left Hip exam: Present: normal inspection, full ROM. Absent: tenderness, swelling Upper Leg exam: Present: normal inspection, full ROM, tenderness. Absent: swelling, abrasion, laceration, ecchymosis, deformity, crepidus, dislocation, erythema Knee exam: Present: normal inspection, full ROM. Absent: tenderness, swelling, abrasion Lower Leg exam: Present: normal inspection, full ROM, tenderness. Absent: swelling, abrasion, laceration, ecchymosis, deformity, crepidus, dislocation, erythema, palpable cord, Sheree's sign Ankle exam: Present: normal inspection, full ROM. Absent: tenderness, swelling Foot/Toe exam: Present: normal inspection, full ROM. Absent: tenderness, swelling Neuro vascular tendon exam: Present: no vascular compromise Gait: Positive: observed and normal 1 - pain here 2 - pain here - Back Exam Back exam: Present: normal inspection, full ROM. Absent: tenderness, CVA tenderness (R), CVA tenderness (L), muscle spasm, paraspinal tenderness, vertebral tenderness, rash noted - Neurological Exam Neurological exam: Present: alert, oriented X3, normal gait - Psychiatric Psychiatric exam: Present: normal affect, normal mood - Skin Skin exam: Present: warm, dry, intact, normal color. Absent: rash ED Course Vital Signs 04/28/20 04/28/20 04/28/20 12:39 13:06 14:23 Temperature 98.4 F Pulse Rate 95 H 95 H Respiratory 18 Rate Blood Pressure 222/125 Blood Pressure 222/146 186/120 [Right] O2 Sat by Pulse 100 Oximetry - Reevaluation(s) Reevaluation #1: 04/28/20 15:21 Patient is speaking in full sentences with no signs of distress noted. ED Lower Extremity MDM - Lab Data Result diagrams: 04/28/20 13:36 04/28/20 13:36 Lab Results 04/28/20 04/28/20 04/28/20 Range/Units 13:05 13:36 13:36 WBC 9.7 (4.5-11.0) K/mm3 RBC 5.10 H (3.65-5.03) M/mm3 Hgb 13.6 (10.1-14.3) gm/dl Hct 41.1 (30.3-42.9) % MCV 81 (79-97) fl MCH 27 L (28-32) pg MCHC 33 (30-34) % RDW 14.5 (13.2-15.2) % Plt Count 242 (140-440) K/mm3 Lymph % (Auto) 28.3 (13.4-35.0) % [place] % (Auto) 7.0 (0.0-7.3) % Eos % (Auto) 0.9 (0.0-4.3) % Baso % (Auto) 1.1 (0.0-1.8) % Lymph # (Auto) 2.7 (1.2-5.4) K/mm3 Benson # (Auto) 0.7 (0.0-0.8) K/mm3 Eos # (Auto) 0.1 (0.0-0.4) K/mm3 Baso # (Auto) 0.1 (0.0-0.1) K/mm3 Seg Neutrophils % 62.7 (40.0-70.0) % Seg Neutrophils # 6.1 (1.8-7.7) K/mm3 Sodium 137 (137-145) mmol/L Potassium 4.5 (3.6-5.0) mmol/L Chloride 103.6 (98-107) mmol/L Carbon Dioxide 24 (22-30) mmol/L Anion Gap 14 mmol/L BUN 12 (7-17) mg/dL Creatinine 0.8 (0.6-1.2) mg/dL Estimated GFR > 60 ml/min BUN/Creatinine Ratio 15 % Glucose 117 H (65-100) mg/dL Calcium 9.0 (8.4-10.2) mg/dL Urine Color Yellow (Yellow) Urine Turbidity Slightly-cloudy (Clear) Urine pH 6.0 (5.0-7.0) Ur Specific [place] 1.025 (1.003-1.030) Urine Protein <15 mg/dl (Negative) mg/dL Urine Glucose (UA) Neg (Negative) mg/dL Urine Ketones Neg (Negative) mg/dL Urine Blood Neg (Negative) Urine Nitrite Neg (Negative) Urine Bilirubin Neg (Negative) Urine Urobilinogen < 2.0 (<2.0) mg/dL Ur Leukocyte Esterase Sm (Negative) Urine WBC (Auto) 18.0 H (0.0-6.0) /HPF Urine RBC (Auto) 4.0 (0.0-6.0) /HPF U Epithel Cells (Auto) 8.0 (0-13.0) /HPF Urine Mucus Few /HPF - EKG Data 04/28/20 15:24 Normal sinus rhythm at [address] or T wave normalities. Reviewed and signed by . - Radiology Data [facility] [address] [place] [address] Vascular Lab Report Signed Patient: OMER ESCALANTE MR#: [id number] : 1985 Acct:[id number] Age/Sex: 35 / F ADM Date: 04/28/20 Loc: ED Attending Dr: Ordering Physician: JAJA RAHMAN NP Date of Service: 04/28/20 Procedure(s): VL venous duplex LE LT Accession Number(s): [id number] cc: JAJA RAHMAN NP DUPLEX DOPPLER LOWER EXTREMITY VEINS, LEFT INDICATION / CLINICAL INFORMATION: left leg pain. TECHNIQUE: Duplex doppler imaging was performed through the veins of the left lower extremity using venous compression and other maneuvers. COMPARISON: None available. FINDINGS: LEFT COMMON FEMORAL VEIN: Negative. LEFT FEMORAL VEIN: Negative. LEFT POPLITEAL VEIN: Negative. LEFT CALF VEINS: Negative. ADDITIONAL FINDINGS: None. IMPRESSION: 1. No sonographic evidence for DVT in the left lower extremity. Signer Name: Dani Doe MD Signed: 04/28/2020 2:24 PM Workstation Name: [email or web address] Transcribed By: KADI Dictated By: Dani Doe MD Electronically Authenticated By: Dani Doe MD Signed Date/Time: 04/28/201423 DD/ 22 TD/TT: - Medical Decision Making This is a 35-year-old female that presents with left leg strain and hypertension. Patient is stable and was examined by me. I referred patient to an orthopedic doctor for further evaluation for possible MRI. Doppler ultrasoun d has been obtained and dictated by the radiologist. Patient is notified of the xreport with noted by the patient. Patient does have normal gait with no tenderness and no joint swelling. No ecchymosis. no joint redness or swelling. Not warm to touch. No signs of cellulites present. Patient received Catapres in the ER. Blood pressure has significantly decreased prior to discharge. Patient was educated in the importance of taking blood pressure medication and blood pressure measurements with lifestyle modification. At time of discharge, the patient does not seem toxic or ill in appearance. No acute signs of distress noted. Patient agrees to discharge treatment plan of care. No further questions noted by the patient. According to ACEP: (1) in ED patients with asymptomatic markedly elevated blood pressure, routine screening for acute target organ injury (eg, serum creatinine, urinalysis, ECG) is not required. (1) In patients with asymptomatic markedly elevated blood pressure, routine ED medical intervention is not required. Critical care attestation.: If time is entered above; I have spent that time in minutes in the direct care of this critically ill patient, excluding procedure time. ED Disposition Clinical Impression: Noncompliance with medication regimen HTN (hypertension) Qualifiers: Hypertension type: unspecified Qualified Code(s): I10 - Essential (primary) hypertension Muscle strain of left lower leg Qualifiers: Encounter type: initial encounter Qualified Code(s): S86.912A - Strain of unspecified muscle(s) and tendon(s) at lower leg level, left leg, initial encounter UTI (urinary tract infection) Qualifiers: Urinary tract infection type: site unspecified Hematuria presence: without hematuria Qualified Code(s): N39.0 - Urinary tract infection, site not specified Disposition: TO HOME OR SELFCARE Is pt being admited?: No Does the pt Need Aspirin: No Condition: Stable Instructions: Muscle Strain, [id number], Hypertension, Adult, Hypertension (ED) Additional Instructions: Follow-up with a primary care doctor in 3-5 days or if symptoms worsen and continue return to emergency room as soon as possible. Prescriptions: amLODIPine 10 mg PO DAILY #30 tab Sulfamethoxazole/Trimethoprim [Bactrim DS TAB] 1 each PO BID #14 tablet Referrals: PRIMARY CAREMD [Primary Care Provider] - 3-5 Days PATRICK CHILDS MD [Staff Physician] - 3-5 Days Forms: Work/School Release Form(ED) Time of Disposition: 15:19 Print Language: YAKUT
== END 2020-04-28 15:47 | disposition home or self-care (01) ==
LOC: ED 12:16
DX: S86.912A Strain of unspecified muscle(s) and tendon(s) at lower leg level, left leg, initial encounter (principal); N39.0 Urinary tract infection, site not specified; I10 Essential (primary) hypertension; Z91.14 Patient's other noncompliance with medication regimen; Z98.890 Other specified postprocedural states; Z79.2 Long term (current) use of antibiotics; Z79.899 Other long term (current) drug therapy; Z88.8 Allergy status to other drugs, medicaments and biological substances; X58.XXXA Exposure to other specified factors, initial encounter; Y93.89 Activity, other specified; Y92.89 Other specified places as the place of occurrence of the external cause; Y99.8 Other external cause status
CPT/HCPCS: 36415; 80048; 81001; 85025; 87086; 93005

== ENCOUNTER 2020-07-29 20:31 | Observation (INO) | payer MEDICAID ==
[2020-07-29] MEDS ORDERED: SODIUM CHLORIDE 0.9% 1000 ML 1,000 ML IV ONE (21:31)
[2020-07-29] MEDS ORDERED: PANTOPRAZOLE 40 MG INJ IV ONE (21:31)
[2020-07-29 21:36] LABS: Hematocrit 32.6 % (30.3-42.9); Hemoglobin 10.7 gm/dl (10.1-14.3); Mean Corpuscular HGB Conc 33 % (30-34); Mean Corpuscular Volume 81 fl (79-97); Platelet Count 262 K/mm3 (140-440); Red Blood Count 4.02 M/mm3 (3.65-5.03); Red Cell Distribution Width 14.7 % (13.2-15.2)
--- NOTE | 2020-07-29 21:36 | Emergency Department Report ---
ED GI Bleed HPI - General Chief complaint: Chest Pain Stated complaint: CHEST PAIN Time Seen by Provider: 07/29/20 21:14 Source: patient Mode of arrival: Ambulatory Limitations: No Limitations - History of Present Illness Initial comments: Chief complaint: Black stools HPI this is a 35-year-old female with history of peptic ulcer disease, hypertension, migraine headache who presents with 8 black stools today. Black stools actually started 3 days ago on Tuesday. She had dizziness. Her heart was beating fast. She felt as if she is going to pass out. She denies any chest pain. She has mild cough. She was diagnosed with Covid 19 in May of this year. Patient denies abdominal pain. She was diagnosed with peptic ulcer disease several years ago at outside hospital per EGD. At that time she stopped the intake of Goody's powder and ibuprofen. She took these medications often for migraine headache. She smokes marijuana occasionally. She is currently unemployed. She lives with her partner and 3 daughters. No history of GI bleed. No need for transfusion. According to EMR patient has been seen in the ER several times in the past 2 y ears. Her hemoglobin hematocrit have been in normal range. As well as normal platelet count. MD complaint: other (Dark stools) -: Gradual (Since this morning) Severity scale (0 -10): 0 Quality: painless Consistency: constant Improves with: none Worsens with: other (Standing) Context: other (History of peptic ulcer disease) Associated Symptoms: other (Palpitations near syncope) - Related Data Previous Rx's Medication Instructions Recorded Last Taken Type Azithromycin [Zithromax Z-KEN] 0 mg PO DAILY #1 pack 07/02/19 Unknown Rx Ketorolac [Toradol] 10 mg PO Q6H PRN #20 tablet 07/02/19 Unknown Rx Tamsulosin [Flomax] 0.4 mg PO QDAY #5 cap 07/02/19 Unknown Rx Butalb/Acetamin/Caff 50-325-40 1 tab PO Q8HR PRN #12 tablet 01/11/20 Unknown Rx [Fioricet 50-325-40] amLODIPine 10 mg PO DAILY #30 tab 01/11/20 Unknown Rx Ketorolac [Toradol] 10 mg PO Q6H PRN #12 tablet 01/31/20 Unknown Rx Nitrofurantoin [place]/M-Cryst 100 mg PO Q12HR 7 Days #14 capsule 01/31/20 Unknown Rx [Macrobid CAP] Sulfamethoxazole/Trimethoprim 1 each PO BID #14 tablet 04/28/20 Unknown Rx [Bactrim DS TAB] amLODIPine 10 mg PO DAILY #30 tab 04/28/20 Unknown Rx Allergies Allergy/AdvReac Type Severity Reaction Status Date / Time codeine Allergy Unknown Verified 01/11/20 13:42 ibuprofen [From Motrin] Allergy Unknown Verified 01/11/20 13:42 ED Review of Systems ROS: Stated complaint: CHEST PAIN Other details as noted in HPI Comment: All other systems reviewed and negative Constitutional: denies: fever, malaise Respiratory: denies: cough, shortness of breath Cardiovascular: palpitations, other (Near syncope). denies: chest pain Gastrointestinal: denies: abdominal pain, nausea, vomiting ED Past Medical Hx - Past Medical History Previous Medical History?: Yes Hx Hypertension: Yes Hx Headaches / Migraines: Yes Hx Kidney Stones: Yes Additional medical history: Covid in May - Surgical History Past Surgical History?: Yes Additional Surgical History: sinus surgery, - Family History Family history: diabetes, hypertension - Social History Smoking Status: Never Smoker Substance Use Type: Marijuana - Medications Home Medications: Home Medications Medication Instructions Recorded Confirmed Last Taken Type Azithromycin [Zithromax Z-KEN] 0 mg PO DAILY #1 pack 07/02/19 Unknown Rx Ketorolac [Toradol] 10 mg PO Q6H PRN #20 tablet 07/02/19 Unknown Rx Tamsulosin [Flomax] 0.4 mg PO QDAY #5 cap 07/02/19 Unknown Rx Butalb/Acetamin/Caff 50-325-40 1 tab PO Q8HR PRN #12 tablet 01/11/20 Unknown Rx [Fioricet 50-325-40] amLODIPine 10 mg PO DAILY #30 tab 01/11/20 Unknown Rx Ketorolac [Toradol] 10 mg PO Q6H PRN #12 tablet 01/31/20 Unknown Rx Nitrofurantoin [place]/M-Cryst 100 mg PO Q12HR 7 Days #14 capsule 01/31/20 Unknown Rx [Macrobid CAP] Sulfamethoxazole/Trimethoprim 1 each PO BID #14 tablet 04/28/20 Unknown Rx [Bactrim DS TAB] amLODIPine 10 mg PO DAILY #30 tab 04/28/20 Unknown Rx ED Physical Exam - General Limitations: No Limitations General appearance: alert, in no apparent distress - Head Head exam: Present: atraumatic, normocephalic - Eye Eye exam: Present: normal appearance - ENT ENT exam: Present: mucous membranes moist - Neck Neck exam: Present: normal inspection, full ROM - Respiratory Respiratory exam: Present: normal lung sounds bilaterally. Absent: respiratory distress, wheezes, rales, rhonchi - Cardiovascular Cardiovascular Exam: Present: normal rhythm, tachycardia, normal heart sounds. Absent: systolic murmur, diastolic murmur, rubs, gallop - GI/Abdominal GI/Abdominal exam: Present: soft, normal bowel sounds. Absent: distended, tenderness, guarding, rebound - Rectal Rectal exam: Present: heme (+) stool, black stool, hemorrhoids (Small midline hemorrhoid nonthrombosed), other (Black grainy watery stool) - Extremities Exam Extremities exam: Present: normal inspection - Back Exam Back exam: Present: normal inspection - Neurological Exam Neurological exam: Present: alert, oriented X3 - Psychiatric Psychiatric exam: Present: normal affect, normal mood - Skin Skin exam: Present: warm, dry, intact, normal color. Absent: rash ED Course Vital Signs 07/29/20 07/29/20 20:46 22:52 Temperature 98.9 F Pulse Rate 120 H 118 H Respiratory 18 18 Rate Blood Pressure 157/116 Blood Pressure 171/98 [Left] O2 Sat by Pulse 98 100 Oximetry ED Medical Decision Making - Lab Data Result diagrams: 07/30/20 00:48 07/29/20 21:22 Laboratory Results - last 24 hr 07/29/20 07/29/20 07/29/20 21:22 21:22 21:22 WBC 14.3 H RBC 4.02 Hgb 10.7 Hct 32.6 MCV 81 MCH 27 L MCHC 33 RDW 14.7 Plt Count 262 PT 14.0 INR 1.03 APTT 24.1 L Sodium 139 Potassium 4.5 Chloride 104.3 Carbon Dioxide 26 Anion Gap 13 BUN 26 H Creatinine 0.8 Estimated GFR > 60 BUN/Creatinine Ratio 33 Glucose 134 H Calcium 8.7 Total Bilirubin Direct Bilirubin Indirect Bilirubin AST ALT Alkaline Phosphatase Total Protein Albumin Albumin/Globulin Ratio Blood Type Antibody Screen 07/29/20 07/29/20 21:22 23:50 WBC RBC Hgb Hct MCV MCH MCHC RDW Plt Count PT INR APTT Sodium Potassium Chloride Carbon Dioxide Anion Gap BUN Creatinine Estimated GFR BUN/Creatinine Ratio Glucose Calcium Total Bilirubin 0.20 Direct Bilirubin < 0.2 Indirect Bilirubin 0.0 AST 11 ALT 12 Alkaline Phosphatase 75 Total Protein 6.2 L Albumin 4.0 Albumin/Globulin Ratio 1.8 Blood Type O POSITIVE Antibody Screen Negative - EKG Data -: EKG Interpreted by Al EKG shows normal: sinus rhythm, axis, intervals, QRS complexes, ST-T waves Rate: tachycardia - EKG Data 07/30/20 00:41 EKG obtained 2038 EKG interpreted by de Sinus tachycardia rate 120 bpm normal axis normal intervals no ST signs of ischemia - Radiology Data CXR: no acute findings - Medical Decision Making Acute UGIB: patient has had dark stools for 3 days. patient has been hemodynamically stable. 4 hour H&H stable with No change. Tachycardia orthostasis resolved with IVF. Patient made NPO. Protonix infusion and bolus initiated in the ED. Patient is admitted to telemetry. Critical Care Time: Yes Critical care time in (mins) excluding proc time.: 40 Critical care attestation.: If time is entered above; I have spent that time in minutes in the direct care of this critically ill patient, excluding procedure time. 40 minutes of critical care time excluding procedures were used in the care of the patient. I came immediately to the bedside upon patient's arrival to treatment room. I was concerned for upper GI bleed. Patient persistent tachycardia. I discussed treatment plan with the nursing team members. I reviewed electronic record. Patient required multiple interventions and reassessments. ED Disposition Clinical Impression: UGIB (upper gastrointestinal bleed), Peptic ulcer disease Disposition: OP ADMIT IP TO THIS HOSP Is pt being admited?: Yes Does the pt Need Aspirin: No Condition: Stable
[2020-07-29 21:49] LABS: INR 1.03 (0.87-1.13)
[2020-07-29 21:50] LABS: Partial Thromboplastin Time 24.1 Sec. (24.2-36.6)
[2020-07-29 21:56] LABS: BUN/Creatinine Ratio 33; Blood Urea Nitrogen 26 mg/dL (7-17); Calcium 8.7 mg/dL (8.4-10.2); Hemolysis Index 8
[2020-07-29 21:58] LABS: Alanine Aminotransferase 12 units/L (7-56)
--- NOTE | 2020-07-29 21:58 | XRay Report ---
CHEST 1 VIEW 07/29/2020 8:47 PM INDICATION / CLINICAL INFORMATION: chest pain. COMPARISON: 12/04/2019 FINDINGS: SUPPORT DEVICES: None. HEART / MEDIASTINUM: Stable. LUNGS / PLEURA: No significant pulmonary or pleural abnormality. No pneumothorax. ADDITIONAL FINDINGS: No significant additional findings. IMPRESSION: 1. No acute findings. No significant interval change. Signer Name: Melo Peres MD Signed: 07/29/2020 9:53 PM Workstation Name: [id number]
[2020-07-29 21:59] LABS: Bilirubin,Direct < 0.2 mg/dL (0-0.2)
[2020-07-30 01:10] LABS: Hematocrit 32.5 % (30.3-42.9); Hemoglobin 10.8 gm/dl (10.1-14.3)
--- NOTE | 2020-07-30 01:29 | History and Physical Report ---
History of Present Illness Date of examination: 07/30/20 Date of admission: 07/30/20 Chief complaint: blood stool History of present illness: HPI this is a 35-year-old female with history of peptic ulcer disease, hypertension, migraine headache who presents with 8 black stools today. Black stools actually started 3 days ago on Tuesday. She had dizziness. Her heart was beating fast. She felt as if she is going to pass out. She denies any chest pain. She has mild cough. She was diagnosed with Covid 19 in May of this year. Patient denies abdominal pain. She was diagnosed with peptic ulcer disease several years ago at outside hospital per EGD. At that time she stopped the intake of Goody's powder and ibuprofen. She took these medications often for mi graine headache. She smokes marijuana occasionally. She is currently unemployed. She lives with her partner and 3 daughters. ED work-up showed WBC 14.3, hemoglobin 10.7 and 10.8, platelet 262, potassium 4.5, sodium 139, creatinine 0.8, glucose serum 134, hemoglobin A1c 5.8 total protein 6.2. Chest x-ray done with no acute finding patient seen at bedside in the ED. Patient alert and oriented x3. Patient reports bloody stool x3 days with abdominal pain and nausea sometimes. Patient said this is the first time she is experiencing bloody stool. I reviewed the patient medication record labs and vital signs. Patient has elevated blood pressure and she said she has a history of blood pressure elevation. Antihypertensive regimen. Past History Past Medical History: hypertension Past Surgical History: tonsillectomy Social history: no significant social history, lives with family Family history: no significant family history Medications and Allergies Allergies Allergy/AdvReac Type Severity Reaction Status Date / Time codeine Allergy Unknown Verified 01/11/20 13:42 ibuprofen [From Motrin] Allergy Unknown Verified 01/11/20 13:42 Home Medications Medication Instructions Recorded Confirmed Last Taken Type Azithromycin [Zithromax Z-KEN] 0 mg PO DAILY #1 pack 07/02/19 Unknown Rx Ketorolac [Toradol] 10 mg PO Q6H PRN #20 tablet 07/02/19 Unknown Rx Tamsulosin [Flomax] 0.4 mg PO QDAY #5 cap 07/02/19 Unknown Rx Butalb/Acetamin/Caff 50-325-40 1 tab PO Q8HR PRN #12 tablet 01/11/20 Unknown Rx [Fioricet 50-325-40] amLODIPine 10 mg PO DAILY #30 tab 01/11/20 Unknown Rx Ketorolac [Toradol] 10 mg PO Q6H PRN #12 tablet 01/31/20 Unknown Rx Nitrofurantoin [place]/M-Cryst 100 mg PO Q12HR 7 Days #14 capsule 01/31/20 Unknown Rx [Macrobid CAP] Sulfamethoxazole/Trimethoprim 1 each PO BID #14 tablet 04/28/20 Unknown Rx [Bactrim DS TAB] amLODIPine 10 mg PO DAILY #30 tab 04/28/20 Unknown Rx Active Meds: Active Medications Pantoprazole Sodium 80 mg/ (Sodium Chloride) 100 mls @ 10 mls/hr IV DIRECT CLIF Review of Systems Ears, nose, mouth and throat: no epistaxis Cardiovascular: no shortness of breath Respiratory: no congestion Gastrointestinal: abdominal pain, nausea, melena Genitourinary Female: no stress incontinence Rectal: no hemorrhoids Integumentary: no rash, no pruritis Neurological: no head injury Hematologic/Lymphatic: no easy bruising, no easy bleeding Allergic/Immunologic: no urticaria Exam - Constitutional Vitals: Temp Pulse Resp BP Pulse Ox 98.9 F 118 H 18 171/98 100 07/29/20 20:46 07/29/20 22:52 07/29/20 22:52 07/29/20 22:52 07/29/20 22:52 General appearance: Present: mild distress, obese - EENT Eyes: Present: PERRL ENT: hearing intact, clear oral mucosa - Neck Neck: Present: supple, normal ROM - Respiratory Respiratory effort: normal Respiratory: bilateral: CTA - Cardiovascular Heart Sounds: Present: S1 & S2. Absent: rub, click - Extremities Extremities: pulses symmetrical, No edema Peripheral Pulses: within normal limits - Abdominal General gastrointestinal: Present: soft, non-tender, non-distended, normal bowel sounds Female genitourinary: Present: normal - Integumentary Integumentary: Present: clear, warm, dry - Musculoskeletal Musculoskeletal: gait normal, strength equal bilaterally - Psychiatric Psychiatric: appropriate mood/affect, intact judgment & insight - Neurologic Neurologic: CNII-XII intact, moves all extremities - Allied Health Allied health notes reviewed: nursing Results - Labs CBC & Chem 7: 07/30/20 00:48 06/08/21 21:22 Labs: Abnormal lab results 07/29/20 07/29/20 07/29/20 Range/Units 21:22 21:22 21:22 WBC 14.3 H (4.5-11.0) K/mm3 MCH 27 L (28-32) pg APTT 24.1 L (24.2-36.6) Sec. BUN 26 H (7-17) mg/dL Glucose 134 H (65-100) mg/dL Total Protein (6.3-8.2) g/dL 07/29/20 Range/Units 21:22 WBC (4.5-11.0) K/mm3 MCH (28-32) pg APTT (24.2-36.6) Sec. BUN (7-17) mg/dL Glucose (65-100) mg/dL Total Protein 6.2 L (6.3-8.2) g/dL Assessment and Plan - Patient Problems (1) UGIB (upper gastrointestinal bleed) Current Visit: Yes Status: Acute Plan to address problem: Patient reported she had bloody stool x3 days with abdominal pain She reports nausea on assessment GI consulted. Her H&H 10.7 and 10.8. Start protonic drip (2) Hypertension Current Visit: Yes Status: Acute Plan to address problem: Patient has history of high blood pressure Monitor blood pressure levels Resume home antihypertensive amlodipine. As needed hydralazine (3) Leucocytosis Current Visit: Yes Status: Acute Plan to address problem: Most likely reactive Patient has no evidence of sepsis. Monitor WBC will start antibiotic therapy if needed (4) DVT prophylaxis Current Visit: Yes Status: Acute Plan to address problem: SCD
[2020-07-30] MEDS ORDERED: SENNOSIDES 8.6 MG TAB PO PRN (01:35)
[2020-07-30] MEDS ORDERED: ONDANSETRON 4 MG/2 ML INJ IV PRN (01:35)
[2020-07-30] MEDS ORDERED: MAGNESIUM HYDROXIDE (MOM) ORAL LIQD UDC PO PRN (01:35)
[2020-07-30] MEDS ORDERED: ALUM-MAG HYDROXIDE-SIMETHICONE 200-200-20MG/5ML ORAL LIQD 30 ML PO PRN (01:35)
[2020-07-30] MEDS ORDERED: ACETAMINOPHEN 325 MG TAB PO PRN (01:35)
[2020-07-30] MEDS ORDERED: hydrALAZINE 20 MG/1 ML INJ IV PRN (01:38)
[2020-07-30] MEDS: PANTOPRAZOLE 80 MG in SODIUM CHLORIDE 0.9% 100 ML IV SCH ×2 (07:20→21:06)
--- NOTE | 2020-07-30 07:49 | Gastroenterology Consultation ---
History of Present Illness - Reason for Consult Consult date: 07/30/20 GI bleed Requesting physician: SCOTT SIMON - History of Present Illness This is a pleasant 35-year-old female with history of peptic ulcer disease, hypertension, migraine headache who presented with multiple episodes of 8 black stools over the last 3 days additionally reports dizziness and tachycardia positive for mild cough and recent Covid in May She reports history of peptic ulcer disease and since then not taking NSAIDs in general however she has been taking NSAIDs last week routinely for her headaches Does not smoke Reports just had another bowel movement that was black and tarry Reports upper abdominal pain epigastric area moderate worse with eating and palpation better with nothing constant duration days associated with melena Past History Past Medical History: hypertension Past Surgical History: tonsillectomy Social history: no significant social history, lives with family Family history: no significant family history Obtained/updated/reviewed patient's current medications Past History Past Medical History: hypertension Past Surgical History: tonsillectomy Social history: no significant social history, lives with family Family history: no significant family history Medications and Allergies Allergies Allergy/AdvReac Type Severity Reaction Status Date / Time codeine Allergy Unknown Verified 01/11/20 13:42 ibuprofen [From Motrin] Allergy Unknown Verified 01/11/20 13:42 Home Medications Medication Instructions Recorded Confirmed Last Taken Type Azithromycin [Zithromax Z-KEN] 0 mg PO DAILY #1 pack 07/02/19 Unknown Rx Ketorolac [Toradol] 10 mg PO Q6H PRN #20 tablet 07/02/19 Unknown Rx Tamsulosin [Flomax] 0.4 mg PO QDAY #5 cap 07/02/19 Unknown Rx Butalb/Acetamin/Caff 50-325-40 1 tab PO Q8HR PRN #12 tablet 01/11/20 Unknown Rx [Fioricet 50-325-40] amLODIPine 10 mg PO DAILY #30 tab 01/11/20 Unknown Rx Ketorolac [Toradol] 10 mg PO Q6H PRN #12 tablet 01/31/20 Unknown Rx Nitrofurantoin [place]/M-Cryst 100 mg PO Q12HR 7 Days #14 capsule 01/31/20 Unknown Rx [Macrobid CAP] Sulfamethoxazole/Trimethoprim 1 each PO BID #14 tablet 04/28/20 Unknown Rx [Bactrim DS TAB] amLODIPine 10 mg PO DAILY #30 tab 04/28/20 Unknown Rx Active Meds: Active Medications Acetaminophen (Acetaminophen 325 Mg Tab) 650 mg PO Q4H PRN PRN Reason: Pain MILD(1-3)/Fever >100.5/[place] Al Hydrox/Mg Hydrox/Simethicone (Alum-Mag Hydroxide-Simethicone 550-131-17dy/5ml Oral Liqd 30 Ml) 30 ml PO Q4H PRN PRN Reason: Indigestion Amlodipine Besylate (Amlodipine 10 Mg Tab) 10 mg PO QDAY CLIF Hydralazine HCl (Hydralazine 20 Mg/1 Ml Inj) 5 mg IV Q4HR PRN PRN Reason: Hypertension Pantoprazole Sodium 80 mg/ (Sodium Chloride) 100 mls @ 10 mls/hr IV DIRECT CLIF Last Admin: 07/30/20 07:20 Dose: 8 mg/hr, 10 mls/hr Documented by: Magnesium Hydroxide (Magnesium Hydroxide (Mom) Oral Liqd Udc) 30 ml PO Q4H PRN PRN Reason: Constipation Ondansetron HCl (Ondansetron 4 Mg/2 Ml Inj) 4 mg IV Q8H PRN PRN Reason: Nausea And Vomiting Senna (Sennosides 8.6 Mg Tab) 8.6 mg PO Q12HR PRN PRN Reason: Constipation Sodium Chloride (Sodium Chloride 0.9% 10 Ml Flush Syringe) 10 ml IV BID CLIF Sodium Chloride (Sodium Chloride 0.9% 10 Ml Flush Syringe) 10 ml IV PRN PRN PRN Reason: LINE FLUSH Review of Systems - Review of Systems All systems: negative (10 Systems reviewed and negative except as mentioned above in the history of present illness) Exam - Constitutional Vital Signs: Temp Pulse Resp BP Pulse Ox 98.2 F 107 H 16 165/120 100 07/30/20 03:00 07/30/20 03:00 07/30/20 03:00 07/30/20 03:00 07/30/20 03:00 General appearance: no acute distress - EENT Eyes: EOM intact ENT: hearing intact - Neck Neck: supple - Respiratory Respiratory effort: normal - Cardiovascular Rhythm: other (Slightly tachycardic) - Gastrointestinal General gastrointestinal: Present: soft, tender, normal bowel sounds - Integumentary Integumentary: Present: dry - Neurologic Neurological: alert and oriented x3 - Psychiatric Psychiatric: appropriate mood/affect - Labs CBC & Chem 7: 07/30/20 00:48 07/29/20 21:22 Lab Results: Laboratory Results - last 24 hr 07/29/20 07/29/20 07/29/20 21:22 21:22 21:22 WBC 14.3 H RBC 4.02 Hgb 10.7 Hct 32.6 MCV 81 MCH 27 L MCHC 33 RDW 14.7 Plt Count 262 PT 14.0 INR 1.03 APTT 24.1 L Sodium 139 Potassium 4.5 Chloride 104.3 Carbon Dioxide 26 Anion Gap 13 BUN 26 H Creatinine 0.8 Estimated GFR > 60 BUN/Creatinine Ratio 33 Glucose 134 H Hemoglobin A1c Calcium 8.7 Total Bilirubin Direct Bilirubin Indirect Bilirubin AST ALT Alkaline Phosphatase Total Protein Albumin Albumin/Globulin Ratio Blood Type Antibody Screen 07/29/20 07/29/20 07/30/20 21:22 23:50 00:48 WBC RBC Hgb 10.8 Hct 32.5 MCV MCH MCHC RDW Plt Count PT INR APTT Sodium Potassium Chloride Carbon Dioxide Anion Gap BUN Creatinine Estimated GFR BUN/Creatinine Ratio Glucose Hemoglobin A1c Calcium Total Bilirubin 0.20 Direct Bilirubin < 0.2 Indirect Bilirubin 0.0 AST 11 ALT 12 Alkaline Phosphatase 75 Total Protein 6.2 L Albumin 4.0 Albumin/Globulin Ratio 1.8 Blood Type O POSITIVE Antibody Screen Negative 07/30/20 00:48 WBC RBC Hgb Hct MCV MCH MCHC RDW Plt Count PT INR APTT Sodium Potassium Chloride Carbon Dioxide Anion Gap BUN Creatinine Estimated GFR BUN/Creatinine Ratio Glucose Hemoglobin A1c 5.8 Calcium Total Bilirubin Direct Bilirubin Indirect Bilirubin AST ALT Alkaline Phosphatase Total Protein Albumin Albumin/Globulin Ratio Blood Type Antibody Screen Assessment and Plan Presentation highly concerning for active upper GI bleed Continue n.p.o. status and PPI drip Plan on emergent EGD today Differential diagnosis includes peptic ulcer disease AVMs gastritis etc. - Patient Problems (1) Melena Current Visit: Yes Status: Acute (2) GI bleed Current Visit: Yes Status: Acute (3) Peptic ulcer disease Current Visit: Yes Status: Acute (4) UGIB (upper gastrointestinal bleed) Current Visit: Yes Status: Acute
--- NOTE | 2020-07-30 08:19 | Progress Note ---
Assessment and Plan Assessment and plan: GI bleed/melena Peptic ulcer disease History of migraine headache 07/30/2020. Await GI consultation and decision regarding possible endoscopy. Patient received 1 dose of Protonix in the ED. We will start Protonix 40 mg IV twice daily. Follow-up serial H&H and transfuse for hemoglobin less than 7. History Interval history: This is a pleasant 35-year-old female with history of peptic ulcer disease, hypertension, migraine headache who presented with multiple episodes of 8 black stools over the last 3 days Hospitalist Physical - Constitutional Vitals: Temp Pulse Resp BP Pulse Ox 97.9 F 102 H 18 159/104 99 07/30/20 07:37 07/30/20 07:37 07/30/20 07:37 07/30/20 07:37 07/30/20 07:37 General appearance: Present: no acute distress, obese - EENT Eyes: Present: PERRL, EOM intact ENT: hearing intact, clear oral mucosa, dentition normal - Neck Neck: Present: supple, normal ROM - Respiratory Respiratory effort: normal Respiratory: bilateral: CTA - Cardiovascular Rhythm: regular Heart Sounds: Present: S1 & S2. Absent: gallop, rub - Extremities Extremities: no ischemia, No edema, Full ROM - Abdominal General gastrointestinal: soft, non-tender, non-distended, normal bowel sounds - Integumentary Integumentary: Present: clear, warm, dry - Neurologic Neurologic: CNII-XII intact, moves all extremities Results - Labs CBC & Chem 7: 07/30/20 00:48 07/29/20 21:22 Labs: Laboratory Last Values WBC 14.3 K/mm3 (4.5-11.0) H 07/29/20 21:22 RBC 4.02 M/mm3 (3.65-5.03) 07/29/20 21: Hgb 10.8 gm/dl (10.1-14.3) 07/30/20 00:48 Hct 32.5 % (30.3-42.9) 07/30/20 00:48 MCV 81 fl (79-97) 07/29/20 21:22 MCH 27 pg (28-32) L 07/29/20 21: MCHC 33 % (30-34) 07/29/20 21: RDW 14.7 % (13.2-15.2) 07/29/20 21:22 Plt Count 262 K/mm3 (140-440) 07/29/20 21:22 PT 14.0 Sec. (12.2-14.9) 07/29/20 21:22 INR 1.03 (0.87-1.13) 07/29/20 21:22 APTT 24.1 Sec. (24.2-36.6) L 07/29/20 21:22 Sodium 139 mmol/L (137-145) 07/29/20 21:22 Potassium 4.5 mmol/L (3.6-5.0) 07/29/20 21:22 Chloride 104.3 mmol/L (98-107) 07/29/20 21:22 Carbon Dioxide 26 mmol/L (22-30) 07/29/20 21:22 Anion Gap 13 mmol/L 07/29/20 21:22 BUN 26 mg/dL (7-17) H 07/29/20 21:22 Creatinine 0.8 mg/dL (0.6-1.2) 07/29/20 21:22 Estimated GFR > 60 ml/min 07/29/20 21:22 BUN/Creatinine Ratio 33 % 07/29/20 21:22 Glucose 134 mg/dL (65-100) H 07/29/20 21:22 Hemoglobin A1c 5.8 % (4-6) 07/30/20 00:48 Calcium 8.7 mg/dL (8.4-10.2) 07/29/20 21:22 Total Bilirubin 0.20 mg/dL (0.1-1.2) 07/29/20 21:22 Direct Bilirubin < 0.2 mg/dL (0-0.2) 07/29/20 21:22 Indirect Bilirubin 0.0 mg/dL 07/29/20 21:22 AST 11 units/L (5-40) 07/29/20 21:22 ALT 12 units/L (7-56) 07/29/20 21:22 Alkaline Phosphatase 75 units/L (35-129) 07/29/20 21:22 Total Protein 6.2 g/dL (6.3-8.2) L 07/29/20 21:22 Albumin 4.0 g/dL (3.9-5) 07/29/20 21:22 Albumin/Globulin Ratio 1.8 % 07/29/20 21:22 Blood Type O POSITIVE 07/29/20 23:50 Antibody Screen Negative 07/29/20 23:50 Hyman/IV: Voiding Method Toilet Active Medications - Current Medications Current Medications: Generic Name Dose Route Start Last Admin Trade Name Freq PRN Reason Stop Dose Admin Acetaminophen 650 mg 07/30/20 01:35 Acetaminophen 325 Mg Tab PO Q4H PRN Pain MILD(1-3)/Fever >100.5/[place] Al Hydrox/Mg Hydrox/Simethicone 30 ml 07/30/20 01:35 Alum-Mag Hydroxide-Simethicone [id number]/5ml Oral Liqd 30 Ml PO Q4H PRN Indigestion Amlodipine Besylate 10 mg 07/30/20 10:00 Amlodipine 10 Mg Tab PO QDAY CLIF Hydralazine HCl 5 mg 07/30/20 01:38 Hydralazine 20 Mg/1 Ml Inj IV Q4HR PRN Hypertension Pantoprazole Sodium 80 mg/ 100 mls @ 10 mls/hr 07/29/20 22:00 07/30/20 07:20 Sodium Chloride IV 8 mg/hr DIRECT CLIF 10 mls/hr Administration 8 MG/HR Magnesium Hydroxide 30 ml 07/30/20 01:35 Magnesium Hydroxide (Mom) Oral Liqd Udc PO Q4H PRN Constipation Ondansetron HCl 4 mg 07/30/20 01:35 Ondansetron 4 Mg/2 Ml Inj IV Q8H PRN Nausea And Vomiting Senna 8.6 mg 07/30/20 01:35 Sennosides 8.6 Mg Tab PO Q12HR PRN Constipation Sodium Chloride 10 ml 07/30/20 10:00 Sodium Chloride 0.9% 10 Ml Flush Syringe IV BID CLIF Sodium Chloride 10 ml 07/30/20 01:35 Sodium Chloride 0.9% 10 Ml Flush Syringe IV PRN PRN LINE FLUSH
[2020-07-30] MEDS ORDERED: SODIUM CHLORIDE 0.9% 1000 ML 1,000 ML IV SCH (08:30)
[2020-07-30] MEDS ORDERED: LIDOCAINE MPF (2%) 20 MG/1 ML VIAL 5 ML ONE (08:31)
[2020-07-30] MEDS ORDERED: fentaNYL 100 MCG/2 ML INJ ONE (08:31)
[2020-07-30] MEDS ORDERED: MIDAZOLAM 2 MG/2 ML INJ ONE (08:31)
[2020-07-30] MEDS ORDERED: propofoL 200 MG/20 ML VIAL IV ONE (08:32)
[2020-07-30] MEDS ORDERED: SODIUM CHLORIDE 0.9% 1000 ML 1,000 ML ONE (08:37)
[2020-07-30] MEDS ORDERED: ONDANSETRON 4 MG/2 ML INJ ONE (08:43)
--- NOTE | 2020-07-30 08:57 | Operative Report ---
Operative Report Operative Report: DOS: 07/30/20 SURGEON: Felix Cuevas MD EGD WITH BIOPSY REPORT PREOPERATIVE DIAGNOSIS and POSTOPERATIVE DIAGNOSIS: Upper GI bleed ESTIMATED BLOOD LOSS: Minimal DESCRIPTION OF PROCEDURE: A high-resolution EGD scope was passed through the oropharynx, esophagus, stomach, and second portion of duodenum. The scope was carefully withdrawn. Retroflexion was performed in the stomach. At the end of the procedure, the scope was cleaned using normal technique. Vital signs monitored continuously throughout. SEDATION: Provided by Anesthesiology Services. COMPLICATIONS: None. FINDINGS: * No gross lesions in the entire examined duodenum * Multiple superficial punctate ulcers 1 mm in diameter or less in the gastric antrum. Moderate hemorrhagic gastritis throughout the rest of the stomach. Biopsies were taken to rule out H. Pylori infection. A total of 5 biopsies were taken, 2 from the antrum, 1 from the incisura, 2 from the body. * Z-line irregular 38 cm from the incisors * Esophagus normal * Exam otherwise normal RECOMMENDATIONS: * Continue PPI drip for another 24 hours then transition to twice daily PPI * Patient is bleeding likely from the hemorrhagic gastritis and multiple punctate ulcers in the stomach likely due to her NSAID use. She must avoid NSAIDs in the future. We will start her on a full liquid diet, and can advance as tolerated. CBC every 12 hours.
--- NOTE | 2020-07-30 09:37 | Anesthesia Day of Surgery ---
Anesthesia Day of Surgery - Day of Surgery Patient Examined: Yes Patient H&P Reviewed: Yes Patient is NPO: Yes
--- NOTE | 2020-07-30 09:37 | Post Anesthesia Evaluation ---
- Post Anesthesia Evaluation Patient Participated: Yes Airway Patent: Yes Stable Respiratory Function: Yes Nausea/Vomiting: No Temp > 96.8F: Yes Pain Manageable: Yes Adequeate Hydration: Yes Anesthesia Complications: No
--- NOTE | 2020-07-30 09:37 | Anesthesia Consultation ---
Anesthesia Consult and Med Hx Date of service: 07/30/20 - Airway ROM Head & Neck: Adequate Mental/Hyoid Distance: Adequate Intubation Access Assessment: Possibly Difficult - Pre-Operative Health Status ASA Pre-Surgery Classification: ASA2 Proposed Anesthetic Plan: MAC - Pulmonary Hx Pneumonia: Yes (COVID 05/2020) - Cardiovascular System Hx Hypertension: Yes - Gastrointestinal Hx Ulcer: Yes - Endocrine Hx Renal Disease: No Hx Liver Disease: No Hx Insulin Dependent Diabetes: No Hx Non-Insulin Dependent Diabetes: No Hx Thyroid Disease: No - Hematic Hx Anemia: Yes - Other Systems Hx Obesity: Yes
[2020-07-30] MEDS: amLODIPine 10 MG TAB PO SCH (11:02)
[2020-07-30 19:12] LABS: Hematocrit 30.7 % (30.3-42.9); Mean Corpuscular HGB Conc 33 % (30-34); Mean Corpuscular Volume 81 fl (79-97); Platelet Count 253 K/mm3 (140-440); Red Blood Count 3.79 M/mm3 (3.65-5.03); Red Cell Distribution Width 14.8 % (13.2-15.2)
[2020-07-30 21:06] LABS: Total Cells Counted 100
[2020-07-30 21:07] LABS: RBC Morphology Normal
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
[2020-07-30] MEDS ORDERED: BUTALB/ACETAMINOPHEN/CAFFEINE TAB PO PRN (22:42)
[2020-07-30] MEDS ORDERED: MORPHINE 2 MG/1 ML INJ IV ONE (23:12)
[2020-07-31 05:10] LABS: Basophils # (Auto) 0.1 K/mm3 (0.0-0.1); Basophils % (Auto) 0.5 % (0.0-1.8); Eosinophils # (Auto) 0.1 K/mm3 (0.0-0.4); Eosinophils % (Auto) 0.4 % (0.0-4.3); Hemoglobin 9.5 gm/dl (10.1-14.3); Lymphocytes # (Auto) 3.2 K/mm3 (1.2-5.4); Lymphocytes % (Auto) 23.4 % (13.4-35.0); Mean Corpuscular HGB Conc 33 % (30-34); Mean Corpuscular Volume 81 fl (79-97); Monocytes # (Auto) 0.7 K/mm3 (0.0-0.8); Platelet Count 271 K/mm3 (140-440); Red Blood Count 3.61 M/mm3 (3.65-5.03); Red Cell Distribution Width 14.7 % (13.2-15.2)
[2020-07-31 05:30] LABS: Alanine Aminotransferase 12 units/L (7-56); Albumin 3.9 g/dL (3.9-5); BUN/Creatinine Ratio 16; Blood Urea Nitrogen 11 mg/dL (7-17); Calcium 8.8 mg/dL (8.4-10.2); Hemolysis Index 0
[2020-07-31] MEDS ORDERED: PANTOPRAZOLE 40 MG INJ IV SCH (10:00)
[2020-07-31] MEDS: amLODIPine 10 MG TAB PO SCH (10:04)
--- NOTE | 2020-07-31 10:19 | Discharge Summary ---
Providers - Providers Date of Admission: 07/30/20 00:32 Date of discharge: 07/31/20 Attending physician: FLEX PHAN 07/30/20 00:33 Consult to Physician [CONS] Stat Comment: Consulting Provider: MEREDITH SUAREZ Physician Instructions: Reason For Exam: ugib Primary care physician: [employer] Hospitalization Reason for admission: melena GI bleed Condition: Stable Hospital course: This is a pleasant 35-year-old female with history of peptic ulcer disease, hypertension, migraine headache who presented with multiple episodes of 8 black stools over the last 3 days. Patient was admitted with diagnosis of GI bleed, melena and history of migraine headaches. The patient had serial CBCs which were monitored. The patient was seen by GI in consultation and underwent EGD which revealed FINDINGS: * No gross lesions in the entire examined duodenum * Multiple superficial punctate ulcers 1 mm in diameter or less in the gastric antrum. Moderate hemorrhagic gastritis throughout the rest of the stomach. Biopsies were taken to rule out H. Pylori infection. A total of 5 biopsies were taken, 2 from the antrum, 1 from the incisura, 2 from the body. * Z-line irregular 38 cm from the incisors * Esophagus normal * Exam otherwise normal GI RECOMMENDATIONS: * Continue PPI drip for another 24 hours then transition to twice daily PPI * Patient is bleeding likely from the hemorrhagic gastritis and multiple punctate ulcers in the stomach likely due to her NSAID use. She must avoid NSAIDs in the future. We will start her on a full liquid diet, and can advance as tolerated. CBC every 12 hours. The patient's H&H remained stable, she tolerated her diet and thus patient will be discharged home with PPI. Dedicated discharge time 35 minutes Disposition: DC-01 TO HOME OR SELFCARE Final Discharge Diagnosis (Prints w/discharge instructions): GI bleed, melena Core Measure Documentation - Palliative Care Palliative Care/ Comfort Measures: Not Applicable - Core Measures Any of the following diagnoses?: none Exam - Constitutional Vitals: Temp Pulse Resp BP Pulse Ox 98.3 F 104 H 20 148/81 100 07/31/20 07:40 07/31/20 07:40 07/31/20 07:40 07/31/20 07:40 07/31/20 07:40 General appearance: Present: no acute distress, well-nourished - EENT Eyes: Present: PERRL ENT: hearing intact, clear oral mucosa - Neck Neck: Present: supple, normal ROM - Respiratory Respiratory effort: normal Respiratory: bilateral: CTA - Cardiovascular Heart Sounds: Present: S1 & S2. Absent: rub, click - Extremities Extremities: pulses symmetrical, No edema Peripheral Pulses: within normal limits - Abdominal General gastrointestinal: Present: soft, non-tender, non-distended, normal bowel sounds Female genitourinary: Present: normal - Integumentary Integumentary: Present: clear, warm, dry - Musculoskeletal Musculoskeletal: gait normal, strength equal bilaterally - Psychiatric Psychiatric: appropriate mood/affect, intact judgment & insight - Neurologic Neurologic: CNII-XII intact, moves all extremities Plan Activity: advance as tolerated Weight Bearing Status: Weight Bear as Tolerated Diet: regular Additional Instructions: Avoid NSAID use Follow up with: PRIMARY CARE, [Primary Care Provider] - 7 Days Prescriptions: Pantoprazole [Protonix] 40 mg PO BID #60 tablet
[2020-07-31 11:53] VITALS: BP 153/94
--- NOTE | 2020-08-07 10:48 | Electrocardiograph Report ---
[facility] Test Date: 2020-07-29 Test Time: 20:39:44 Pat Name: OMER ESCALANTE Department: Room: A468 1 Gender: F Sales Enablement Specialist: RIKKI : 1985 Requested By: SCOTT SIMON Order Number: [id number] Reading MD: Martina Degroot Measurements Intervals [place] Rate: 120 P: 53 ND: 143 QRS: 48 QRSD: 85 T: 3 QT: 338 QTc: 478 Interpretive Statements Sinus tachycardia No previous ECG available for comparison Electronically Signed On 08-07-2020 10:48:28 EDT by Martina Degroot
== END 2020-07-31 12:44 | disposition home or self-care (01) ==
LOC: ED 20:31 → 4A 07-30 00:32
PROVIDERS: ADMIT Internal Medicine Geriatric Medicine; ATTEND Hospitalist
DX: K92.2 Gastrointestinal hemorrhage, unspecified (principal); I10 Essential (primary) hypertension; D72.829 Elevated white blood cell count, unspecified; G43.909 Migraine, unspecified, not intractable, without status migrainosus; Z90.49 Acquired absence of other specified parts of digestive tract; Z87.440 Personal history of urinary (tract) infections; Z79.899 Other long term (current) drug therapy; Z98.890 Other specified postprocedural states; Z98.891 History of uterine scar from previous surgery
CPT/HCPCS: 36415; 43239; 70450; 71045; 80048; 80053; 80076; 82962; 83036; 85014; 85018; 85025; 85027; 85610; 85730; 86850; 86900; 86901; 88305; 88342; 93005; 96361; 96365; 96366; 96375; 96376; 99291; C9113; G0378; J0360; J2250; J2270; J2405; J2704; J3010; J7030; 85007

== ENCOUNTER 2020-11-23 08:49 | Emergency (ER) | payer MEDICAID ==
[2020-11-23 08:55] VITALS: BP 187/117
--- NOTE | 2020-11-23 09:21 | Emergency Department Report ---
ED ENT HPI - General Chief complaint: Earache Stated complaint: LEFT EAR PAIN Time Seen by Provider: 11/23/20 08:58 Source: patient Mode of arrival: Ambulatory Limitations: No Limitations - History of Present Illness Initial comments: This is a 35-year-old female brought by mother nontoxic, well nourished in appearance, no acute signs of distress presents to the ED with c/o of left earache x several days. Patient denies any ear drainage. Patient denies any trauma to the area. Patient denies any mastoid tenderness or tragus tenderness. Patient denies hearing decrease or hearing changes. Patient denies any fever, chills, nausea, vomiting, chest pain, short of breath, headache or stiff neck. Patient stated allergies to codeine and ibuprofen. Past medical history "hypertension which she stated has been out of her blood pressure medication amlodipine 10 mg daily the past month. MD complaint: ear pain -: days(s) Location: L ear Severity: mild Severity scale (0 -10): 8 Quality: aching Consistency: constant Improves with: none Worsens with: none Associated Symptoms: denies: fever, cough, gum swelling, toothache, pain with swallowing, sore throat, tinnitus, hearing loss, discharge from ear, rhinorrhea - Related Data Previous Rx's Medication Instructions Recorded Last Taken Type Azithromycin [Zithromax Z-KEN] 0 mg PO DAILY #1 pack 07/02/19 Unknown Rx Tamsulosin [Flomax] 0.4 mg PO QDAY #5 cap 07/02/19 Unknown Rx Butalb/Acetamin/Caff 50-325-40 1 tab PO Q8HR PRN #12 tablet 01/11/20 Unknown Rx [Fioricet 50-325-40] amLODIPine 10 mg PO DAILY #30 tab 01/11/20 Unknown Rx Nitrofurantoin Hardy/M-Cryst 100 mg PO Q12HR 7 Days #14 capsule 01/31/20 Unknown Rx [Macrobid CAP] Sulfamethoxazole/Trimethoprim 1 each PO BID #14 tablet 04/28/20 Unknown Rx [Bactrim DS TAB] amLODIPine 10 mg PO DAILY #30 tab 04/28/20 Unknown Rx Pantoprazole [Protonix] 40 mg PO BID #60 tablet 07/31/20 Unknown Rx amLODIPine 10 mg PO QDAY tablet 07/31/20 Unknown Rx Amoxicillin [Amoxicillin TAB] 875 mg PO BID #20 tablet 11/23/20 Unknown Rx amLODIPine 10 mg PO DAILY #30 tab 11/23/20 Unknown Rx Allergies Allergy/AdvReac Type Severity Reaction Status Date / Time codeine Allergy Unknown Verified 01/11/20 13:42 ibuprofen [From Motrin] Allergy Unknown Verified 01/11/20 13:42 ED Dental HPI - General Chief complaint: Earache Stated complaint: LEFT EAR PAIN Time Seen by Provider: 11/23/20 08:58 Source: patient Mode of arrival: Ambulatory Limitations: No Limitations - Related Data Previous Rx's Medication Instructions Recorded Last Taken Type Azithromycin [Zithromax Z-KEN] 0 mg PO DAILY #1 pack 07/02/19 Unknown Rx Tamsulosin [Flomax] 0.4 mg PO QDAY #5 cap 07/02/19 Unknown Rx Butalb/Acetamin/Caff 50-325-40 1 tab PO Q8HR PRN #12 tablet 01/11/20 Unknown Rx [Fioricet 50-325-40] amLODIPine 10 mg PO DAILY #30 tab 01/11/20 Unknown Rx Nitrofurantoin Hardy/M-Cryst 100 mg PO Q12HR 7 Days #14 capsule 01/31/20 Unknown Rx [Macrobid CAP] Sulfamethoxazole/Trimethoprim 1 each PO BID #14 tablet 04/28/20 Unknown Rx [Bactrim DS TAB] amLODIPine 10 mg PO DAILY #30 tab 04/28/20 Unknown Rx Pantoprazole [Protonix] 40 mg PO BID #60 tablet 07/31/20 Unknown Rx amLODIPine 10 mg PO QDAY tablet 07/31/20 Unknown Rx Amoxicillin [Amoxicillin TAB] 875 mg PO BID #20 tablet 11/23/20 Unknown Rx amLODIPine 10 mg PO DAILY #30 tab 11/23/20 Unknown Rx Allergies Allergy/AdvReac Type Severity Reaction Status Date / Time codeine Allergy Unknown Verified 01/11/20 13:42 ibuprofen [From Motrin] Allergy Unknown Verified 01/11/20 13:42 ED Review of Systems ROS: Stated complaint: LEFT EAR PAIN Other details as noted in HPI Comment: All other systems reviewed and negative Constitutional: denies: chills, fever Eyes: denies: eye pain, eye discharge, vision change ENT: ear pain. denies: throat pain, dental pain, hearing loss, epistaxis, congestion Respiratory: denies: cough, shortness of breath, wheezing Cardiovascular: denies: chest pain, palpitations Endocrine: no symptoms reported Gastrointestinal: denies: abdominal pain, nausea, diarrhea Genitourinary: denies: urgency, dysuria, discharge Musculoskeletal: denies: back pain, joint swelling, arthralgia Skin: denies: rash, lesions Neurological: denies: headache, weakness, paresthesias Psychiatric: denies: anxiety, depression Hematological/Lymphatic: denies: easy bleeding, easy bruising ED Past Medical Hx - Past Medical History Previous Medical History?: Yes Hx Hypertension: Yes Hx Liver Disease: No Hx Renal Disease: No Hx Headaches / Migraines: Yes Hx Kidney Stones: Yes Additional medical history: Covid in May - Surgical History Past Surgical History?: Yes Additional Surgical History: sinus surgery, - Social History Smoking Status: Never Smoker Substance Use Type: None - Medications Home Medications: Home Medications Medication Instructions Recorded Confirmed Last Taken Type Azithromycin [Zithromax Z-KEN] 0 mg PO DAILY #1 pack 07/02/19 Unknown Rx Tamsulosin [Flomax] 0.4 mg PO QDAY #5 cap 07/02/19 Unknown Rx Butalb/Acetamin/Caff 50-325-40 1 tab PO Q8HR PRN #12 tablet 01/11/20 Unknown Rx [Fioricet 50-325-40] amLODIPine 10 mg PO DAILY #30 tab 01/11/20 Unknown Rx Nitrofurantoin Hardy/M-Cryst 100 mg PO Q12HR 7 Days #14 capsule 01/31/20 Unknown Rx [Macrobid CAP] Sulfamethoxazole/Trimethoprim 1 each PO BID #14 tablet 04/28/20 Unknown Rx [Bactrim DS TAB] amLODIPine 10 mg PO DAILY #30 tab 04/28/20 Unknown Rx Pantoprazole [Protonix] 40 mg PO BID #60 tablet 07/31/20 Unknown Rx amLODIPine 10 mg PO QDAY tablet 07/31/20 Unknown Rx Amoxicillin [Amoxicillin TAB] 875 mg PO BID #20 tablet 11/23/20 Unknown Rx amLODIPine 10 mg PO DAILY #30 tab 11/23/20 Unknown Rx ED Physical Exam - General Limitations: No Limitations General appearance: alert, in no apparent distress - Head Head exam: Present: atraumatic, normocephalic - Eye Eye exam: Present: normal appearance - Expanded ENT Exam Expanded Ear exam: Present: normal external inspection TM/Canal exam: Erythema: Left TM, Bulging: Left TM - Neck Neck exam: Present: normal inspection, full ROM. Absent: lymphadenopathy - Respiratory Respiratory exam: Absent: respiratory distress - Cardiovascular Cardiovascular Exam: Present: regular rate - Extremities Exam Extremities exam: Present: full ROM - Back Exam Back exam: Present: full ROM - Neurological Exam Neurological exam: Present: alert, oriented X3, normal gait - Psychiatric Psychiatric exam: Present: normal affect, normal mood - Skin Skin exam: Present: warm, dry, intact, normal color. Absent: rash ED Course Vital Signs 11/23/20 08:50 Temperature 98.6 F Pulse Rate 94 H Respiratory 18 Rate Blood Pressure 187/117 [Right] O2 Sat by Pulse 99 Oximetry - Reevaluation(s) Reevaluation #1: 11/23/20 09:22 Patient is speaking in full sentences with no signs of distress noted. ED Medical Decision Making - Medical Decision Making 35-year-old female that presents with left otitis media. Patient is stable and was examined by me. Patient educated on hypertension and medication compliance. I will discharge patient with medication refills. According to ACEP: (1) in ED patients with asymptomatic markedly elevated blood pressure, routine screening for acute target organ injury (eg, serum creatinine, urinalysis, ECG) is not required. (1) In patients with asymptomatic markedly elevated blood pressure, routine ED medical intervention is not required. Patient was instructed to follow-up with a primary care doctor in 3-5 days or if symptoms worsen and continue return to emergency room as soon as possible. At time of discharge, the patient does not seem toxic or ill in appearance. No acute signs of distress noted. Patient agrees to discharge treatment plan of care. No further questions noted by the patient. Critical care attestation.: If time is entered above; I have spent that time in minutes in the direct care of this critically ill patient, excluding procedure time. ED Disposition Clinical Impression: Noncompliance with medication regimen Left otitis media Qualifiers: Otitis media type: unspecified Qualified Code(s): H66.92 - Otitis media, unspecified, left ear HTN (hypertension) Qualifiers: Hypertension type: unspecified Qualified Code(s): I10 - Essential (primary) hypertension Disposition: 01 HOME / SELF CARE / HOMELESS Is pt being admited?: No Does the pt Need Aspirin: No Condition: Stable Instructions: Otitis Media, Adult, [id number], Hypertension (ED) Additional Instructions: Follow-up with a primary care doctor in 3-5 days or if symptoms worsen and continue return to emergency room as soon as possible. Prescriptions: amLODIPine 10 mg PO DAILY #30 tab Amoxicillin [Amoxicillin TAB] 875 mg PO BID #20 tablet Referrals: PRIMARY CAREMD [Referring] - 3-5 Days PATRICK CHILDS MD [Staff Physician] - 3-5 Days Forms: Work/School Release Form(ED) Time of Disposition: 09:19
== END 2020-11-23 09:46 | disposition home or self-care (01) ==
LOC: ED 08:49
DX: H66.92 Otitis media, unspecified, left ear (principal); I10 Essential (primary) hypertension; Z91.14 Patient's other noncompliance with medication regimen; Z88.8 Allergy status to other drugs, medicaments and biological substances; Z88.5 Allergy status to narcotic agent
CPT/HCPCS: 99282

== ENCOUNTER 2021-02-04 14:22 | Emergency (ER) | payer MEDICAID ==
[2021-02-04] MEDS ORDERED: cloNIDine 0.1 MG TAB PO ONE (15:10)
[2021-02-04 15:28] LABS: Basophils # (Auto) 0.1 K/mm3 (0.0-0.1); Basophils % (Auto) 0.6 % (0.0-1.8); Eosinophils % (Auto) 0.5 % (0.0-4.3); Lymphocytes # (Auto) 2.5 K/mm3 (1.2-5.4); Lymphocytes % (Auto) 26.7 % (13.4-35.0); Mean Corpuscular HGB Conc 30 % (30-34); Monocytes # (Auto) 0.5 K/mm3 (0.0-0.8); Monocytes % (Auto) 5.7 % (0.0-7.3); Platelet Count 342 K/mm3 (140-440)
[2021-02-04 15:30] LABS: Hemoglobin 11.9 gm/dl (10.1-14.3); Mean Corpuscular Volume 68 fl (79-97); Red Cell Distribution Width 20.1 % (13.2-15.2)
[2021-02-04] MEDS ORDERED: ASPIRIN 325 MG TAB PO ONE (15:47)
[2021-02-04] MEDS ORDERED: METOCLOPRAMIDE 10 MG/2 ML INJ IV ONE (15:47)
[2021-02-04] MEDS ORDERED: diphenhydrAMINE 50 MG/ML VIAL IV ONE (15:47)
--- NOTE | 2021-02-04 15:48 | Emergency Department Report ---
ED General Adult HPI - General Chief complaint: Chest Pain Stated complaint: HIGH BLOOD PRESSURE, CHEST PAIN PUI?: No Time Seen by Provider: 02/04/21 15:33 Source: patient Mode of arrival: Ambulatory Limitations: No Limitations - History of Present Illness Initial comments: 35-year-old female with a past medical history of hypertension presents to the ER today with complaints of elevated blood pressure, headache and chest pain. Patient states that for the past 3 days she did have a diffuse headache but more so over the occipital aspect of her head and substernal chest pain which started about 2 days ago. She states that both pain have been intermittent and sharp in nature. She has been nauseous and she did vomit once today. She denies any associated cough, rhinorrhea, nasal congestion, shortness of breath, lower ext remity swelling or calf pain. She reports no vision changes, speech changes, focal weakness or any paresthesias. Patient does admit that she has not been taking her amlodipine like she is supposed to. She states the last time she took it was yesterday. She denies any history of TIA/CVA, [place] or coronary artery disease. She states that she is about the stress test. She denies any illicit drug use, tobacco use and she denies any recent travel. MD Complaint: Chest pain, headache, elevated blood pressure -: Gradual, days(s) (3) - Related Data Previous Rx's Medication Instructions Recorded Last Taken Type Azithromycin [Zithromax Z-KEN] 0 mg PO DAILY #1 pack 07/02/19 Unknown Rx Tamsulosin [Flomax] 0.4 mg PO QDAY #5 cap 07/02/19 Unknown Rx amLODIPine 10 mg PO DAILY #30 tab 01/11/20 Unknown Rx Nitrofurantoin Finney/M-Cryst 100 mg PO Q12HR 7 Days #14 capsule 01/31/20 Unknown Rx [Macrobid CAP] Sulfamethoxazole/Trimethoprim 1 each PO BID #14 tablet 04/28/20 Unknown Rx [Bactrim DS TAB] amLODIPine 10 mg PO DAILY #30 tab 04/28/20 Unknown Rx Pantoprazole [Protonix] 40 mg PO BID #60 tablet 07/31/20 Unknown Rx amLODIPine 10 mg PO QDAY tablet 07/31/20 Unknown Rx Amoxicillin [Amoxicillin TAB] 875 mg PO BID #20 tablet 11/23/20 Unknown Rx Butalb/Acetamin/Caff 50-325-40 1 tab PO Q8HR PRN #12 tablet 02/04/21 Unknown Rx [Fioricet 50-325-40] Ondansetron [Zofran Odt] 4 mg PO Q8HR #15 tab.rapdis 02/04/21 Unknown Rx amLODIPine 10 mg PO DAILY #30 tab 02/04/21 Unknown Rx Allergies Allergy/AdvReac Type Severity Reaction Status Date / Time codeine Allergy Unknown Verified 02/04/21 14:27 ibuprofen [From Motrin] Allergy Unknown Verified 02/04/21 14:27 ED Review of Systems ROS: Stated complaint: HIGH BLOOD PRESSURE, CHEST PAIN Other details as noted in HPI Comment: All other systems reviewed and negative Constitutional: denies: chills, fever Eyes: denies: eye pain, eye discharge, vision change ENT: denies: ear pain, throat pain, dental pain, hearing loss, epistaxis, congestion Respiratory: denies: cough, shortness of breath, wheezing Cardiovascular: chest pain Endocrine: no symptoms reported Gastrointestinal: nausea, vomiting. denies: abdominal pain, diarrhea, constipation, hematemesis, melena, hematochezia Genitourinary: denies: urgency, dysuria, frequency, hematuria, discharge, abnormal menses, dyspareunia Musculoskeletal: denies: back pain, joint swelling, arthralgia, myalgia Skin: denies: rash, lesions, change in color, change in hair/nails, pruritus Neurological: denies: headache, weakness, numbness, paresthesias, confusion, abnormal gait, vertigo Psychiatric: denies: anxiety, depression, auditory hallucinations, visual hallucinations, homicidal thoughts Hematological/Lymphatic: denies: easy bleeding, easy bruising, swollen glands ED Past Medical Hx - Past Medical History Hx Hypertension: Yes Hx Liver Disease: No Hx Renal Disease: No Hx Headaches / Migraines: Yes Hx Kidney Stones: Yes Additional medical history: Covid in May - Surgical History Additional Surgical History: sinus surgery, - Social History Smoking Status: Never Smoker Substance Use Type: None - Medications Home Medications: Home Medications Medication Instructions Recorded Confirmed Last Taken Type Azithromycin [Zithromax Z-KEN] 0 mg PO DAILY #1 pack 07/02/19 Unknown Rx Tamsulosin [Flomax] 0.4 mg PO QDAY #5 cap 07/02/19 Unknown Rx amLODIPine 10 mg PO DAILY #30 tab 01/11/20 Unknown Rx Nitrofurantoin Finney/M-Cryst 100 mg PO Q12HR 7 Days #14 capsule 01/31/20 Unknown Rx [Macrobid CAP] Sulfamethoxazole/Trimethoprim 1 each PO BID #14 tablet 04/28/20 Unknown Rx [Bactrim DS TAB] amLODIPine 10 mg PO DAILY #30 tab 04/28/20 Unknown Rx Pantoprazole [Protonix] 40 mg PO BID #60 tablet 07/31/20 Unknown Rx amLODIPine 10 mg PO QDAY tablet 07/31/20 Unknown Rx Amoxicillin [Amoxicillin TAB] 875 mg PO BID #20 tablet 11/23/20 Unknown Rx Butalb/Acetamin/Caff 50-325-40 1 tab PO Q8HR PRN #12 tablet 02/04/21 Unknown Rx [Fioricet 50-325-40] Ondansetron [Zofran Odt] 4 mg PO Q8HR #15 tab.rapdis 02/04/21 Unknown Rx amLODIPine 10 mg PO DAILY #30 tab 02/04/21 Unknown Rx ED Physical Exam - General Limitations: No Limitations General appearance: alert, in no apparent distress - Head Head exam: Present: atraumatic, normocephalic, normal inspection - Eye Eye exam: Present: normal appearance, PERRL, EOMI Pupils: Present: normal accommodation - Neck Neck exam: Present: normal inspection, full ROM. Absent: meningismus - Respiratory Respiratory exam: Present: normal lung sounds bilaterally. Absent: respiratory distress, wheezes, rales, rhonchi, stridor - Cardiovascular Cardiovascular Exam: Present: regular rate, normal rhythm, normal heart sounds - GI/Abdominal GI/Abdominal exam: Present: soft. Absent: distended, tenderness, guarding, rebound - Neurological Exam Neurological exam: Present: alert, oriented X3, CN II-XII intact, normal gait - Psychiatric Psychiatric exam: Present: normal affect, normal mood - Skin Skin exam: Present: intact ED Course Vital Signs 02/04/21 02/04/21 14:28 16:35 Temperature 99.1 F Pulse Rate 101 H 90 Respiratory 20 16 Rate Blood Pressure 210/132 Blood Pressure 154/109 [Right] O2 Sat by Pulse 100 98 Oximetry ED Medical Decision Making - Lab Data Result diagrams: 02/04/21 15:03 02/04/21 15:03 - EKG Data EKG shows normal: sinus rhythm Rate: normal (98) - EKG Data Interpretation: normal EKG, LVH - Radiology Data Radiology results: report reviewed Patient: OMER ESCALANTE MR#: [id number] : 1985 Acct:[id number] Age/Sex: 35 / F ADM Date: 02/04/21 Loc: ED Attending Dr: Ordering Physician: CRISTOBAL LOW Date of Service: 02/04/21 Procedure(s): XR chest routine 2V Accession Number(s): [id number] cc: CRISTOBAL LOW Fluoro Time In Minutes: CHEST 2 VIEWS INDICATION / CLINICAL INFORMATION: chest pain. COMPARISON: 07/29/2020 FINDINGS: SUPPORT DEVICES: None. HEART / MEDIASTINUM: No significant abnormality. LUNGS / PLEURA: No significant pulmonary or pleural abnormality. No pneumothorax. ADDITIONAL FINDINGS: No significant additional findings. IMPRESSION: 1. No acute findings. Signer Name: Chan Mustafa MD Signed: 02/04/2021 4:02 PM Workstation Name: [email or web address] Transcribed By: ABEBE Dictated By: Chan Mustafa MD Electronically Authenticated By: Chan Mustafa MD Signed Date/Time: 02/04/21 160 DD/ 160 TD/TT: - Medical Decision Making Work up reviewed --nothing significant on the labs. Troponin x2 is normal. EKG did not show any STEMI, or any significant dysrhythmias or any concerning abnormalities. Chest x-ray is normal. Patient appears to be feeling better after medication. She is actually ready to leave. She is awake alert oriented x3 with a GCS of 15. She is neurologically intact with a normal gait. Her blood pressure has improved after medications. At this time based on patient work-up, and current condition I do not suspect TIA, CVA, unstable angina, PE, aortic dissection, meningitis or any other acute emergent conditions warranting additional testing, admission or specialist consult at this time. Heart sore 1; PERC score 0 Discussed all results with patient. Stressed to her the importance of being compliant with her blood pressure medication and taking it daily. She will be given a refill on the amlodipine and something for her headache. She does have a PCP and so I recommended that she follows up with the PCP but she will also be given referral to cardiology for further cardiac work-up including a stress test. Patient expressed understanding of all instructions and agree with plan. Patient stable at time of discharge. Critical care attestation.: If time is entered above; I have spent that time in minutes in the direct care of this critically ill patient, excluding procedure time. ED Disposition Clinical Impression: Uncontrolled hypertension, Noncompliance with medication regimen, Nonspecific chest pain, Headache Disposition: 01 HOME / SELF CARE / HOMELESS Is pt being admited?: No Does the pt Need Aspirin: No Condition: Stable Instructions: Nonspecific Chest Pain, Adult, Hypertension, Adult, [id number], Managing Your Hypertension, Hypertension (ED) Additional Instructions: It is very important that you take your amlodipine daily and try to avoid missing doses. A new prescription will be given to you at discharge today. Take the Tylenol threes as prescribed to help with any pain. You can also take a baby aspirin daily. I recommend that you follow-up with the primary care doctor as well as the pill machine operator listed on your discharge instructions for further evaluation. Return to the ER if your symptoms worsens or changes in any way. Prescriptions: amLODIPine 10 mg PO DAILY #30 tab Butalb/Acetamin/Caff 50-325-40 [Fioricet 50-325-40] 1 tab PO Q8HR PRN #12 tablet PRN Reason: Headache Ondansetron [Zofran Odt] 4 mg PO Q8HR #15 tab.rapdis Referrals: ODILIA OWEN MD [Staff Physician] - 3-5 Days ANG STOCKTON MD [Staff Physician] - 3-5 Days Forms: Work/School Release Form(ED) Time of Disposition: 18:33 HEART Score - HEART Score History: Slightly suspicious EKG: Normal Age: < 45 Risk factors: 1-2 risk factors Troponin: Troponin T < 0.010 ng/mL (0.00-0.029) 02/04/21 17:24 Troponin: < normal limit HEART Score: 1 - Critical Actions Critical Actions: 0-3 pts:0.9-1.7%risk of adverse cardiac event.Candidate for discharge
--- NOTE | 2021-02-04 16:06 | XRay Report ---
CHEST 2 VIEWS INDICATION / CLINICAL INFORMATION: chest pain. COMPARISON: 07/29/2020 FINDINGS: SUPPORT DEVICES: None. HEART / MEDIASTINUM: No significant abnormality. LUNGS / PLEURA: No significant pulmonary or pleural abnormality. No pneumothorax. ADDITIONAL FINDINGS: No significant additional findings. IMPRESSION: 1. No acute findings. Signer Name: Chan Mustafa MD Signed: 02/04/2021 4:02 PM Workstation Name: [email or web address]
[2021-02-04 16:36] VITALS: BP 154/109
[2021-02-04 16:54] LABS: Alanine Aminotransferase 18 units/L (7-56); Albumin 4.1 g/dL (3.9-5); Blood Urea Nitrogen 14 mg/dL (7-17); Calcium 9.1 mg/dL (8.4-10.2); Hemolysis Index 40
[2021-02-04 17:04] LABS: BUN/Creatinine Ratio 20
--- NOTE | 2021-02-05 10:33 | Electrocardiograph Report ---
[facility] Test Date: 2021-02-04 Test Time: 14:32:17 Pat Name: OMER ESCALANTE Department: Room: Gender: F Warehouse Shipper: PB HAIRSTONB: 1985 Requested By: CRISTOBAL LOW Order Number: [id number] Reading MD: Luis Galeas Measurements Intervals [place] Rate: 98 P: 38 AR: 145 QRS: 23 QRSD: 92 T: 4 QT: 383 QTc: 488 Interpretive Statements Sinus rhythm Probable left atrial enlargement Probable left ventricular hypertrophy Compared to ECG 07/29/2020 20:39:44 Sinus tachycardia no longer present Electronically Signed On 02-05-2021 10:32:55 EST by Luis Galeas
== END 2021-02-04 18:45 | disposition home or self-care (01) ==
LOC: ED 14:22
DX: I10 Essential (primary) hypertension (principal); Z91.14 Patient's other noncompliance with medication regimen; R07.9 Chest pain, unspecified; R51.9 Headache, unspecified
CPT/HCPCS: 36415; 71046; 80053; 84484; 84703; 85025; 93005; 96374; 96375; 99284; J1200; J2765

== ENCOUNTER 2021-02-11 14:40 | Emergency (ER) | payer MEDICAID ==
--- NOTE | 2021-02-11 16:56 | Emergency Department Report ---
ED Headache HPI - General Chief Complaint: Headache Stated Complaint: CARRINGTON X 2 WEEKS Time Seen by Provider: 02/11/21 16:51 - History of Present Illness Initial Comments: Patient presents secondary to a headache. She has been having intermittent headaches in the right parietal area and occipital area for 2 weeks now. These seem to come and go. There is no aggravating or alleviating factors. Patient denies trauma. She does report some blurry vision and double vision. She also reports nausea and vomiting. She had been seen here for elevated blood pressure. Her pressures are still elevated. She does not seem to have headache related to that however. She states that this is random and seems to come and go. She has taken [id number] medication. She has taken headache specific medication. Nothing seems to be helping. She decided to come back here. Patient has no history of weakness in 1 arm or 1 leg. There has been no facial numbness. Allergies/Adverse Reactions: Allergies codeine Allergy (Verified 02/04/21 14:27) Unknown ibuprofen [From Motrin] Allergy (Verified 02/04/21 14:27) Unknown Home Medications: Ambulatory Orders Tamsulosin [Flomax] 0.4 mg PO QDAY #5 cap 07/02/19 amLODIPine 10 mg PO DAILY #30 tab 01/11/20 amLODIPine 10 mg PO DAILY #30 tab 04/28/20 Pantoprazole [Protonix] 40 mg PO BID #60 tablet 07/31/20 amLODIPine 10 mg PO QDAY tablet 07/31/20 Butalb/Acetamin/Caff 50-325-40 [Fioricet 50-325-40] 1 tab PO Q8HR PRN #12 tablet 02/04/21 Ondansetron [Zofran Odt] 4 mg PO Q8HR #15 tab.rapdis 02/04/21 amLODIPine 10 mg PO DAILY #30 tab 02/04/21 SUMAtriptan SUCCINATE [Imitrex] 100 mg PO DAILY #10 tablet 02/11/21 ED Review of Systems ROS: Stated complaint: CARRINGTON X 2 WEEKS Other details as noted in HPI Comment: All other systems reviewed and negative Constitutional: denies: fever Eyes: denies: vision change ENT: denies: throat pain Respiratory: denies: cough Cardiovascular: denies: chest pain Endocrine: denies: unexplained weight loss Gastrointestinal: denies: abdominal pain Genitourinary: denies: dysuria Musculoskeletal: denies: back pain Skin: denies: rash Neurological: as per HPI Hematological/Lymphatic: denies: easy bruising ED Past Medical Hx - Past Medical History Hx Hypertension: Yes Hx Liver Disease: No Hx Renal Disease: No Hx Headaches / Migraines: Yes Hx Kidney Stones: Yes Additional medical history: Covid in May - Surgical History Additional Surgical History: sinus surgery, - Family History Family history: hypertension - Social History Smoking Status: Never Smoker Substance Use Type: None - Medications Home Medications: Home Medications Medication Instructions Recorded Confirmed Last Taken Type Tamsulosin [Flomax] 0.4 mg PO QDAY #5 cap 07/02/19 Unknown Rx amLODIPine 10 mg PO DAILY #30 tab 01/11/20 Unknown Rx amLODIPine 10 mg PO DAILY #30 tab 04/28/20 Unknown Rx Pantoprazole [Protonix] 40 mg PO BID #60 tablet 07/31/20 Unknown Rx amLODIPine 10 mg PO QDAY tablet 07/31/20 Unknown Rx Butalb/Acetamin/Caff 50-325-40 1 tab PO Q8HR PRN #12 tablet 02/04/21 Unknown Rx [Fioricet 50-325-40] Ondansetron [Zofran Odt] 4 mg PO Q8HR #15 tab.rapdis 02/04/21 Unknown Rx amLODIPine 10 mg PO DAILY #30 tab 02/04/21 Unknown Rx SUMAtriptan SUCCINATE [Imitrex] 100 mg PO DAILY #10 tablet 02/11/21 Unknown Rx ED Physical Exam - General Limitations: No Limitations, Other (Pulse ox noted and normal) General appearance: alert, in no apparent distress - Head Head exam: Present: atraumatic, normocephalic - Eye Eye exam: Present: normal appearance, EOMI. Absent: scleral icterus - ENT ENT exam: Present: normal orophraynx, normal external ear exam - Neck Neck exam: Present: normal inspection. Absent: meningismus - Respiratory Respiratory exam: Present: normal lung sounds bilaterally. Absent: respiratory distress - Cardiovascular Cardiovascular Exam: Present: regular rate, normal rhythm - GI/Abdominal GI/Abdominal exam: Present: soft. Absent: tenderness - Extremities Exam Extremities exam: Present: normal capillary refill - Back Exam Back exam: Absent: CVA tenderness (R), CVA tenderness (L) - Neurological Exam Neurological exam: Present: alert, oriented X3, CN II-XII intact, normal gait. Absent: motor sensory deficit - Psychiatric Psychiatric exam: Present: normal affect, normal mood - Skin Skin exam: Present: warm, dry ED Course Vital Signs 02/11/21 15:28 Temperature 98.5 F Pulse Rate 119 H Respiratory 18 Rate Blood Pressure 183/121 O2 Sat by Pulse 98 Oximetry - Reevaluation(s) Reevaluation #1: 02/11/21 16:56 CT was ordered. Old records reviewed. Reevaluation #2: 02/11/21 18:32 CT was noted. Patient was discharged. ED Medical Decision Making - Radiology Data Radiology results: report reviewed - Medical Decision Making Patient presents with reports of visual changes associate with intermittent headache. Headache is in the right parietal area and occipital area. There is no trauma associate with this. There is no evidence of subdural or epidural hematoma on CT. Patient does not appear to be toxic. There is no evidence of subarachnoid hemorrhage despite having weeks of this intermittent headache. I do not believe this represents subarachnoid hemorrhage. Was not thunderclap. It was not a maximum intensity the time of onset. This does seem to come and go. She certainly has no meningeal signs. Patient was treated symptomatically and referred for outpatient evaluation follow-up. Critical Care Time: No Critical care attestation.: If time is entered above; I have spent that time in minutes in the direct care of this critically ill patient, excluding procedure time. ED Disposition Clinical Impression: Acute headache Qualifiers: Headache type: unspecified Intractability: not intractable Qualified Code(s): R51.9 - Headache, unspecified Disposition: 01 HOME / SELF CARE / HOMELESS Is pt being admited?: No Condition: Stable Instructions: Form - Headache Record, General Headache Without Cause, [id number] Additional Instructions: Drink plenty water. Return for problems. Try caffeine at home. Follow-up with your regular doctor for recheck and further management. Prescriptions: SUMAtriptan SUCCINATE [Imitrex] 100 mg PO DAILY #10 tablet
--- NOTE | 2021-02-11 18:13 | Cat Scan Report ---
CT head/brain wo con INDICATION / CLINICAL INFORMATION: 35 years Female; Headache with visual disturbance. TECHNIQUE: Routine CT head without contrast. All CT scans at this location are performed using CT dos e reduction for ALARA by means of automated exposure control. COMPARISON: 07/30/2020 FINDINGS: BRAIN / INTRACRANIAL CONTENTS: No acute hemorrhage, mass effect, midline shift, hydrocephalus, or acu te, large territorial infarct. No signs of significant atrophy or chronic infarct. No significant whi te matter abnormality seen. CRANIOCERVICAL JUNCTION: No significant abnormality. ORBITS: No significant abnormality of visualized orbits. SINUSES / MASTOIDS: Partial opacification of the left sphenoid sinus seen. Mild to moderate mucosal t hickening in the ethmoids. ADDITIONAL FINDINGS: Prominent soft tissue is seen in the roof the nasopharynx, presumably related to reactive adenoidal tissue. Please clinically correlate. IMPRESSION: 1. No focal mass, hemorrhage, hydrocephalus, or acute, large territorial infarct. 2. Sinus disease as described above. Signer Name: Richard Miles MD, III Signed: 02/11/2021 6:09 PM Workstation Name: [id number]
[2021-02-11 18:52] VITALS: BP 163/126
== END 2021-02-12 06:43 | disposition home or self-care (01) ==
LOC: ED 14:40
DX: G43.909 Migraine, unspecified, not intractable, without status migrainosus (principal); Z98.890 Other specified postprocedural states; Z87.442 Personal history of urinary calculi; Z88.6 Allergy status to analgesic agent; Z88.8 Allergy status to other drugs, medicaments and biological substances
CPT/HCPCS: 70450; 99283